=== PATIENT | female | born 1950 | race Caucasian/White ===

== ENCOUNTER 2021-04-26 00:48 | Inpatient (IN) ==
[2021-04-27] MEDS ORDERED: Naloxone 0.4 MG/ML INJ IVP PRN (01:39)
[2021-04-27] MEDS ORDERED: Ondansetron 4 MG/2 ML VIAL IVP PRN (01:39)
[2021-04-27] MEDS ORDERED: Ipratropium 1 PUFF INHALER IH PRN (01:47)
[2021-04-27] MEDS ORDERED: D5% in Water 1,000 ML IVC PRN (01:57)
[2021-04-27] MEDS ORDERED: *HR* Dextrose 50 % in Water (Vial) 50 ML VIAL IVP PRN (01:57)
[2021-04-27] MEDS ORDERED: Dextrose Gel 15 GM/37.5 ML TUBE PO PRN ×2 (01:57)
[2021-04-27 02:49] LABS: Hemoglobin 11.4 g/dL (11.5-15.4)
[2021-04-27 02:51] LABS: Hematocrit 40.5 % (35.3-44.9); Immature Platelets 6.1 % (1.1-6.1); Mean Corpuscular HGB Conc 28.1 g/dL (31.6-35.5); Mean Corpuscular Hemoglobin 20.4 pg (28.0-33.3); Mean Corpuscular Volume 72.3 fL (83.0-100.0); Mean Platelet Volume 9.9 fL (9.4-12.4); Platelet Count 357 K/mcL (140-400); White Blood Count 8.9 K/mcL (4.3-11.1)
[2021-04-27 03:14] LABS: BUN/Creatinine Ratio 26 (6-26); Blood Urea Nitrogen 17 mg/dL (8-23); C-Reactive Protein 99 mg/L (Less than 10); Calcium 8.4 mg/dL (8.6-10.3); Carbon Dioxide 21 mEq/L (23-29); Chloride 100 mEq/L (98-107); Glucose 293 mg/dL (70-105); Lactate Dehydrogenase 343 Units/L (140-271); Osmolality,Calculated 292 (280-300); Potassium 4.1 mEq/L (3.5-5.1); Sodium 135 mEq/L (136-145); eGFR For African Americans > 60 (> 60); eGFR For Non-African Americans > 60 (> 60)
[2021-04-27 03:28] LABS: Ferritin 102 ng/mL (10-120)
[2021-04-27] MEDS ORDERED: *HR* Enoxaparin 40 MG/0.4 ML SYRINGE SQ SCH (06:00)
[2021-04-27] MEDS: Insulin LISPRO 300 UNITS/3 ML VIAL SUBQ SCH ×3 (06:40→21:49)
[2021-04-27] MEDS ORDERED: Chloraseptic Spray 177 ML BOTTLE MM PRN (07:42)
[2021-04-27] MEDS: Ipratropium 1 PUFF INHALER IH SCH ×5 (08:30→23:19)
[2021-04-27 08:54] LABS: ABG Base Excess -1 mEq/L (-2 to 3); ABG HCO3 23 mEq/L (21-27); ABG Oxygen Saturation 88 % (95-98); ABG PCO2 36 mmHg (35-45); ABG PH 7.42 pH Units (7.32-7.45); ABG PO2 54 mmHg (85-104); ABG TCO2 24 mEq/L (20-26); Blood Gas Modality CPAP/PS; Blood Gas Pressure Support 12 cm H2O
[2021-04-27] MEDS: Cholecalciferol (D-3) 1,000 UNIT (25MCG) TABLET PO SCH (08:57)
[2021-04-27] MEDS: Chlorhexidine Rinse 15 ML MOUTHWASH MM SCH ×2 (08:57→21:48)
[2021-04-27] MEDS ORDERED: Dexamethasone Sodium Phos/PF 10 MG/ML VIAL IVP SCH (09:00)
[2021-04-27 09:23] LABS: INR 1.1; Prothrombin Time 12.8 Seconds (9.4-12.1)
[2021-04-27] MEDS: Furosemide 20 MG/2 ML VIAL IVP SCH (09:25)
[2021-04-27 09:27] LABS: Albumin 3.6 g/dL (3.5-5.7); Albumin/Globulin Ratio 1.1 (1.1-2.2); Bilirubin,Indirect 0.3 mg/dL (0.0-1.0); Bilirubin,Total 0.3 mg/dL (0.3-1.0); Globulin 3.2 g/dL (2.4-3.5); Magnesium 2.2 mg/dL (1.6-2.6); Phosphorous 3.8 mg/dL (2.7-4.5); Total Protein 6.8 g/dL (6.4-8.9)
[2021-04-27] MEDS: Artificial Tears SOLN 15 ML BOTTLE BOTH EYES SCH ×2 (09:44→21:48)
[2021-04-27] MEDS: Pantoprazole 40 MG VIAL IVP SCH (13:49)
[2021-04-27] MEDS ORDERED: TOCILIZUMAB 648 MG in 0.9 % Sodium Chloride 96.4 ML IVPB ONE (17:30)
[2021-04-27] MEDS ORDERED: *HR* Heparin 5,000 UNIT/ML VIAL IVP ONE (17:36)
[2021-04-27] MEDS ORDERED: *HR* Heparin 5,000 UNIT/ML VIAL IVP PRN ×2 (17:36)
[2021-04-27 19:16] LABS: Heparin anti-factor XA UFH 0.17 IU/mL (0.30-0.70); INR 1.1; Prothrombin Time 12.4 Seconds (9.4-12.1)
[2021-04-27] MEDS: Heparin 25,000UNIT/250ML 1/2NS 25,000 UNIT/250 ML IV.SOLN IVC SCH (19:55)
[2021-04-27] MEDS: Insulin DETEMIR 100 UNIT/ML X5UNITS SUBQ SCH (21:48)
[2021-04-28 02:44] LABS: Basophils % 0.1 %; Red Blood Count 5.46 M/mcL (3.82-4.97); Red Cell Distribution Width 29.7 % (11.5-14.5)
[2021-04-28 02:46] LABS: Hematocrit 39.1 % (35.3-44.9); Hemoglobin 11.2 g/dL (11.5-15.4); Immature Granulocytes % 0.7 % (0-4); Immature Platelets 6.6 % (1.1-6.1); Lymphocytes # 0.8 K/mcL (0.6-4.6); Mean Corpuscular HGB Conc 28.6 g/dL (31.6-35.5); Mean Corpuscular Hemoglobin 20.5 pg (28.0-33.3); Mean Corpuscular Volume 71.6 fL (83.0-100.0); Mean Platelet Volume 9.5 fL (9.4-12.4); Monocytes # 0.9 K/mcL (0.0-1.3); Monocytes % 11.9 %; Platelet Count 350 K/mcL (140-400); Segmented Neutrophils % 76.3 %; White Blood Count 7.4 K/mcL (4.3-11.1)
[2021-04-28 02:51] LABS: Neutrophils # 5.7 K/mcL (1.6-8.9)
[2021-04-28 02:57] LABS: Heparin anti-factor XA UFH 0.62 IU/mL (0.30-0.70)
[2021-04-28] MEDS: Ipratropium 1 PUFF INHALER IH SCH ×5 (03:02→19:31)
[2021-04-28 03:27] LABS: Alanine Aminotransferase 8 Units/L (7-52); Albumin 3.3 g/dL (3.5-5.7); Albumin/Globulin Ratio 1.1 (1.1-2.2); Alkaline Phosphatase 60 Units/L (34-104); Aspartate Amino Transferase 10 Units/L (13-39); BUN/Creatinine Ratio 45 (6-26); Bilirubin,Total 0.3 mg/dL (0.3-1.0); Blood Urea Nitrogen 25 mg/dL (8-23); C-Reactive Protein 53 mg/L (Less than 10); Calcium 8.9 mg/dL (8.6-10.3); Carbon Dioxide 26 mEq/L (23-29); Chloride 101 mEq/L (98-107); Ferritin 100 ng/mL (10-120); Globulin 3.1 g/dL (2.4-3.5); Glucose 234 mg/dL (70-105); Iron < 10 mcg/dL (50-170); Lactate Dehydrogenase 312 Units/L (140-271); Magnesium 2.4 mg/dL (1.6-2.6); Osmolality,Calculated 298 (280-300); Phosphorous 3.1 mg/dL (2.7-4.5); Potassium 3.8 mEq/L (3.5-5.1); Sodium 138 mEq/L (136-145); Total Protein 6.4 g/dL (6.4-8.9); Transferrin 235 mg/dL (203-362); eGFR For African Americans > 60 (> 60); eGFR For Non-African Americans > 60 (> 60)
[2021-04-28 04:13] LABS: Anisocytosis 2+ (Not Present)
[2021-04-28 04:14] LABS: Hypochromasia Present (Not Present); Microcytosis Present (Not Present); Platelet Estimate Normal (Normal)
[2021-04-28 06:43] LABS: Folate 16.8 ng/mL (3.0-16.0)
[2021-04-28] MEDS: Insulin LISPRO 300 UNITS/3 ML VIAL SUBQ SCH ×4 (07:29→17:09)
[2021-04-28] MEDS ORDERED: Iron Sucrose Complex 400 MG in 0.9 % Sodium Chloride 250 ML IVPB ONE (07:31)
[2021-04-28] MEDS: Multivit/Ca/Min/Fe/FA 1 TAB TABLET PO SCH (09:53)
[2021-04-28] MEDS: amLODIPine 5 MG TABLET PO SCH (09:53)
[2021-04-28] MEDS: Cholecalciferol (D-3) 1,000 UNIT (25MCG) TABLET PO SCH (09:53)
[2021-04-28] MEDS: Furosemide 20 MG/2 ML VIAL IVP SCH (09:54)
[2021-04-28] MEDS: Pantoprazole 40 MG VIAL IVP SCH (09:54)
[2021-04-28] MEDS: Chlorhexidine Rinse 15 ML MOUTHWASH MM SCH ×2 (09:55→19:31)
[2021-04-28] MEDS: Artificial Tears SOLN 15 ML BOTTLE BOTH EYES SCH ×3 (09:56→19:31)
[2021-04-28] MEDS: Insulin DETEMIR 100 UNIT/ML X5UNITS SUBQ SCH (19:30)
[2021-04-28] MEDS: Heparin 25,000UNIT/250ML 1/2NS 25,000 UNIT/250 ML IV.SOLN IVC SCH (23:36)
[2021-04-29] MEDS: Ipratropium 1 PUFF INHALER IH SCH ×7 (00:05→23:27)
[2021-04-29 01:59] LABS: Prothrombin Time 12.1 Seconds (9.4-12.1)
[2021-04-29 02:06] LABS: Alanine Aminotransferase 7 Units/L (7-52); Albumin 3.2 g/dL (3.5-5.7); Alkaline Phosphatase 58 Units/L (34-104); Aspartate Amino Transferase 12 Units/L (13-39); BUN/Creatinine Ratio 50 (6-26); Bilirubin,Total 0.3 mg/dL (0.3-1.0); Blood Urea Nitrogen 29 mg/dL (8-23); C-Reactive Protein 27 mg/L (Less than 10); Calcium 8.6 mg/dL (8.6-10.3); Carbon Dioxide 22 mEq/L (23-29); Chloride 97 mEq/L (98-107); Globulin 3.3 g/dL (2.4-3.5); Glucose 288 mg/dL (70-105); Lactate Dehydrogenase 274 Units/L (140-271); Magnesium 2.3 mg/dL (1.6-2.6); Osmolality,Calculated 294 (280-300); Phosphorous 2.9 mg/dL (2.7-4.5); Potassium 3.5 mEq/L (3.5-5.1); Sodium 134 mEq/L (136-145); Total Protein 6.5 g/dL (6.4-8.9); eGFR For African Americans > 60 (> 60); eGFR For Non-African Americans > 60 (> 60)
[2021-04-29 02:08] LABS: Basophils % 0.1 %; Hemoglobin 11.3 g/dL (11.5-15.4); Immature Granulocytes % 0.7 % (0-4); Immature Platelets 5.8 % (1.1-6.1); Lymphocytes # 0.7 K/mcL (0.6-4.6); Lymphocytes % 6.7 %; Mean Corpuscular Hemoglobin 21.2 pg (28.0-33.3); Mean Corpuscular Volume 73.3 fL (83.0-100.0); Monocytes % 8.8 %; Neutrophils # 9.1 K/mcL (1.6-8.9); Nucleated Red Blood Cells 0.2 /100 WBC (0); Platelet Count 349 K/mcL (140-400); Red Blood Count 5.32 M/mcL (3.82-4.97); Red Cell Distribution Width 29.7 % (11.5-14.5); Segmented Neutrophils % 83.7 %; White Blood Count 10.9 K/mcL (4.3-11.1)
[2021-04-29 02:14] LABS: Anisocytosis 2+ (Not Present); Hypochromasia Present (Not Present); Microcytosis Present (Not Present); Platelet Estimate Normal (Normal)
[2021-04-29 02:19] LABS: Estimated Average Glucose 154 mg/dl
[2021-04-29 02:20] LABS: Ferritin 165 ng/mL (10-120)
[2021-04-29] MEDS: Insulin LISPRO 300 UNITS/3 ML VIAL SUBQ SCH ×5 (03:02→20:39)
[2021-04-29] MEDS: Furosemide 20 MG/2 ML VIAL IVP SCH (09:00)
[2021-04-29] MEDS: Pantoprazole 40 MG VIAL IVP SCH (09:00)
[2021-04-29] MEDS: Cholecalciferol (D-3) 1,000 UNIT (25MCG) TABLET PO SCH (09:02)
[2021-04-29] MEDS: amLODIPine 5 MG TABLET PO SCH (09:02)
[2021-04-29] MEDS: Artificial Tears SOLN 15 ML BOTTLE BOTH EYES SCH ×2 (09:02→20:38)
[2021-04-29] MEDS: Multivit/Ca/Min/Fe/FA 1 TAB TABLET PO SCH (09:02)
[2021-04-29] MEDS: Chlorhexidine Rinse 15 ML MOUTHWASH MM SCH ×2 (09:02→20:37)
[2021-04-29] MEDS: Saliva Stimulant 44.3ml BOTTLE PO PRN ×2 (13:25→18:46)
[2021-04-29] MEDS: Saline Nasal Spray 44 ML BOTTLE NS PRN ×3 (13:25→20:38)
[2021-04-29] MEDS ORDERED: Insulin Human Regular 10 UNIT in 0.9 % Sodium Chloride 10 ML IV ONE (17:31)
[2021-04-29] MEDS: Insulin DETEMIR 100 UNIT/ML X5UNITS SUBQ SCH (20:37)
[2021-04-30 02:21] LABS: Basophils % 0.1 %; Hematocrit 40.7 % (35.3-44.9); Hemoglobin 11.6 g/dL (11.5-15.4); Immature Granulocytes % 0.9 % (0-4); Immature Platelets 10.1 % (1.1-6.1); Lymphocytes % 9.4 %; Mean Corpuscular HGB Conc 28.5 g/dL (31.6-35.5); Mean Corpuscular Hemoglobin 21.4 pg (28.0-33.3); Monocytes % 9.9 %; Neutrophils # 8.4 K/mcL (1.6-8.9); Platelet Count 319 K/mcL (140-400); Red Blood Count 5.43 M/mcL (3.82-4.97); Red Cell Distribution Width 30.1 % (11.5-14.5); Segmented Neutrophils % 79.7 %; White Blood Count 10.5 K/mcL (4.3-11.1)
[2021-04-30 02:26] LABS: Prothrombin Time 11.1 Seconds (9.4-12.1)
[2021-04-30 03:24] LABS: C-Reactive Protein 12 mg/L (Less than 10)
[2021-04-30 03:25] LABS: Alanine Aminotransferase 10 Units/L (7-52); Albumin 3.1 g/dL (3.5-5.7); Albumin/Globulin Ratio 1.1 (1.1-2.2); Alkaline Phosphatase 54 Units/L (34-104); Aspartate Amino Transferase 17 Units/L (13-39); BUN/Creatinine Ratio 39 (6-26); Bilirubin,Total 0.3 mg/dL (0.3-1.0); Blood Urea Nitrogen 24 mg/dL (8-23); Calcium 8.6 mg/dL (8.6-10.3); Carbon Dioxide 20 mEq/L (23-29); Chloride 100 mEq/L (98-107); Ferritin 227 ng/mL (10-120); Globulin 2.8 g/dL (2.4-3.5); Glucose 205 mg/dL (70-105); Lactate Dehydrogenase 322 Units/L (140-271); Magnesium 2.3 mg/dL (1.6-2.6); Osmolality,Calculated 288 (280-300); Phosphorous 2.4 mg/dL (2.7-4.5); Potassium 3.5 mEq/L (3.5-5.1); Sodium 134 mEq/L (136-145); Total Protein 5.9 g/dL (6.4-8.9); eGFR For African Americans > 60 (> 60); eGFR For Non-African Americans > 60 (> 60)
[2021-04-30 04:00] LABS: Anisocytosis 3+ (Not Present); Large Platelets Present (Not Present); Platelet Estimate Normal (Normal)
[2021-04-30 04:01] LABS: Hypochromasia Present (Not Present)
[2021-04-30] MEDS: Ipratropium 1 PUFF INHALER IH SCH ×6 (04:07→23:32)
[2021-04-30] MEDS: Cholecalciferol (D-3) 1,000 UNIT (25MCG) TABLET PO SCH (08:00)
[2021-04-30] MEDS: amLODIPine 5 MG TABLET PO SCH (08:00)
[2021-04-30] MEDS: Furosemide 20 MG/2 ML VIAL IVP SCH (08:00)
[2021-04-30] MEDS: Multivit/Ca/Min/Fe/FA 1 TAB TABLET PO SCH (08:00)
[2021-04-30] MEDS: Pantoprazole 40 MG VIAL IVP SCH (08:02)
[2021-04-30] MEDS: Chlorhexidine Rinse 15 ML MOUTHWASH MM SCH ×2 (08:06→20:50)
[2021-04-30] MEDS: Insulin DETEMIR 100 UNIT/ML X5UNITS SUBQ SCH ×2 (08:08→20:50)
[2021-04-30] MEDS: Insulin LISPRO 300 UNITS/3 ML VIAL SUBQ SCH ×5 (08:24→20:57)
[2021-04-30] MEDS: Heparin 25,000UNIT/250ML 1/2NS 25,000 UNIT/250 ML IV.SOLN IVC SCH ×2 (08:34→20:51)
[2021-04-30] MEDS: Artificial Tears SOLN 15 ML BOTTLE BOTH EYES SCH ×2 (11:32→20:59)
[2021-04-30 22:37] LABS: Hepatitis B Surface Antigen Nonreactive (Nonreactive)
[2021-04-30 23:07] LABS: Hepatitis A Antibody IgM Nonreactive (Nonreactive)
[2021-05-01] MEDS: Ipratropium 1 PUFF INHALER IH SCH ×5 (03:39→21:54)
[2021-05-01 07:44] LABS: Basophils % 0.1 %
[2021-05-01 07:46] LABS: Eosinophils # 0.1 K/mcL (0.0-0.6); Eosinophils % 0.5 %; Hemoglobin 11.2 g/dL (11.5-15.4); Immature Granulocytes % 1.7 % (0-4); Immature Platelets 8.5 % (1.1-6.1); Lymphocytes # 1.3 K/mcL (0.6-4.6); Lymphocytes % 13.5 %; Mean Corpuscular HGB Conc 28.7 g/dL (31.6-35.5); Mean Corpuscular Hemoglobin 20.6 pg (28.0-33.3); Mean Corpuscular Volume 71.6 fL (83.0-100.0); Monocytes # 0.5 K/mcL (0.0-1.3); Monocytes % 5.8 %; Neutrophils # 7.3 K/mcL (1.6-8.9); Nucleated Red Blood Cells 0.2 /100 WBC (0); Platelet Count 379 K/mcL (140-400); Red Blood Count 5.45 M/mcL (3.82-4.97); Red Cell Distribution Width 29.5 % (11.5-14.5); Segmented Neutrophils % 78.4 %; White Blood Count 9.3 K/mcL (4.3-11.1)
[2021-05-01] MEDS: Chlorhexidine Rinse 15 ML MOUTHWASH MM SCH ×2 (07:49→21:20)
[2021-05-01] MEDS: Cholecalciferol (D-3) 1,000 UNIT (25MCG) TABLET PO SCH (07:49)
[2021-05-01] MEDS: Multivit/Ca/Min/Fe/FA 1 TAB TABLET PO SCH (07:49)
[2021-05-01] MEDS: Furosemide 20 MG/2 ML VIAL IVP SCH (07:50)
[2021-05-01] MEDS: amLODIPine 5 MG TABLET PO SCH (07:50)
[2021-05-01] MEDS: Pantoprazole 40 MG VIAL IVP SCH (07:50)
[2021-05-01] MEDS: Insulin DETEMIR 100 UNIT/ML X5UNITS SUBQ SCH ×2 (07:51→21:21)
[2021-05-01] MEDS: Artificial Tears SOLN 15 ML BOTTLE BOTH EYES SCH ×2 (07:52→21:20)
[2021-05-01] MEDS: Insulin LISPRO 300 UNITS/3 ML VIAL SUBQ SCH ×6 (07:52→16:49)
[2021-05-01] MEDS: Loratadine 10 MG TABLET PO SCH (07:57)
[2021-05-01 08:17] LABS: Alanine Aminotransferase 13 Units/L (7-52); Albumin 3.3 g/dL (3.5-5.7); Albumin/Globulin Ratio 1.3 (1.1-2.2); Alkaline Phosphatase 53 Units/L (34-104); Aspartate Amino Transferase 19 Units/L (13-39); BUN/Creatinine Ratio 30 (6-26); Bilirubin,Total 0.3 mg/dL (0.3-1.0); Blood Urea Nitrogen 21 mg/dL (8-23); Calcium 8.9 mg/dL (8.6-10.3); Carbon Dioxide 28 mEq/L (23-29); Chloride 99 mEq/L (98-107); Ferritin 257 ng/mL (10-120); Globulin 2.5 g/dL (2.4-3.5); Glucose 107 mg/dL (70-105); Lactate Dehydrogenase 274 Units/L (140-271); Magnesium 2.2 mg/dL (1.6-2.6); Osmolality,Calculated 289 (280-300); Phosphorous 2.8 mg/dL (2.7-4.5); Potassium 3.6 mEq/L (3.5-5.1); Sodium 138 mEq/L (136-145); Total Protein 5.8 g/dL (6.4-8.9); eGFR For African Americans > 60 (> 60); eGFR For Non-African Americans > 60 (> 60)
[2021-05-01 09:16] LABS: Anisocytosis 3+ (Not Present); Hypochromasia Present (Not Present); Platelet Estimate Normal (Normal)
[2021-05-01 09:17] LABS: Large Platelets Present (Not Present); Microcytosis Present (Not Present)
[2021-05-01 10:34] LABS: C-Reactive Protein < 5 mg/L (Less than 10)
[2021-05-02] MEDS: Ipratropium 1 PUFF INHALER IH SCH ×4 (03:59→22:27)
[2021-05-02 05:32] LABS: Basophils % 0.1 %; Eosinophils # 0.1 K/mcL (0.0-0.6); Eosinophils % 0.7 %; Hematocrit 38.1 % (35.3-44.9); Hemoglobin 11.2 g/dL (11.5-15.4); Immature Granulocytes % 2.4 % (0-4); Immature Platelets 8.9 % (1.1-6.1); Lymphocytes # 1.1 K/mcL (0.6-4.6); Mean Corpuscular HGB Conc 29.4 g/dL (31.6-35.5); Mean Corpuscular Hemoglobin 21.1 pg (28.0-33.3); Mean Corpuscular Volume 71.8 fL (83.0-100.0); Monocytes # 0.6 K/mcL (0.0-1.3); Monocytes % 5.4 %; Platelet Count 345 K/mcL (140-400); Red Blood Count 5.31 M/mcL (3.82-4.97); Red Cell Distribution Width 29.5 % (11.5-14.5); Segmented Neutrophils % 81.4 %; White Blood Count 10.9 K/mcL (4.3-11.1)
[2021-05-02 05:57] LABS: Alanine Aminotransferase 20 Units/L (7-52); Albumin 3.2 g/dL (3.5-5.7); Albumin/Globulin Ratio 1.2 (1.1-2.2); Alkaline Phosphatase 54 Units/L (34-104); Aspartate Amino Transferase 22 Units/L (13-39); BUN/Creatinine Ratio 38 (6-26); Bilirubin,Total 0.3 mg/dL (0.3-1.0); Blood Urea Nitrogen 22 mg/dL (8-23); C-Reactive Protein < 5 mg/L (Less than 10); Calcium 8.7 mg/dL (8.6-10.3); Carbon Dioxide 26 mEq/L (23-29); Chloride 99 mEq/L (98-107); Globulin 2.7 g/dL (2.4-3.5); Glucose 162 mg/dL (70-105); Lactate Dehydrogenase 247 Units/L (140-271); Magnesium 2.2 mg/dL (1.6-2.6); Osmolality,Calculated 289 (280-300); Phosphorous 2.7 mg/dL (2.7-4.5); Potassium 3.7 mEq/L (3.5-5.1); Sodium 136 mEq/L (136-145); Total Protein 5.9 g/dL (6.4-8.9); eGFR For African Americans > 60 (> 60); eGFR For Non-African Americans > 60 (> 60)
[2021-05-02 05:58] LABS: Neutrophils # 8.9 K/mcL (1.6-8.9)
[2021-05-02 06:08] LABS: Ferritin 200 ng/mL (10-120)
[2021-05-02 06:10] LABS: Anisocytosis 3+ (Not Present); Microcytosis Present (Not Present)
[2021-05-02 06:11] LABS: Platelet Estimate Normal (Normal); Poikilocytosis 1+ (Not Present)
[2021-05-02] MEDS: Artificial Tears SOLN 15 ML BOTTLE BOTH EYES SCH ×2 (07:35→20:01)
[2021-05-02] MEDS: Cholecalciferol (D-3) 1,000 UNIT (25MCG) TABLET PO SCH (07:44)
[2021-05-02] MEDS: amLODIPine 5 MG TABLET PO SCH (07:44)
[2021-05-02] MEDS: Loratadine 10 MG TABLET PO SCH (07:44)
[2021-05-02] MEDS: Multivit/Ca/Min/Fe/FA 1 TAB TABLET PO SCH (07:44)
[2021-05-02] MEDS: Chlorhexidine Rinse 15 ML MOUTHWASH MM SCH ×2 (07:44→20:01)
[2021-05-02] MEDS: Insulin DETEMIR 100 UNIT/ML X5UNITS SUBQ SCH ×2 (07:45→20:02)
[2021-05-02] MEDS: Pantoprazole 40 MG VIAL IVP SCH (07:45)
[2021-05-02] MEDS: Furosemide 20 MG/2 ML VIAL IVP SCH (07:45)
[2021-05-02] MEDS: Dexamethasone Sodium Phos/PF 10 MG/ML VIAL IVP SCH (07:46)
[2021-05-02] MEDS: Insulin LISPRO 300 UNITS/3 ML VIAL SUBQ SCH ×3 (11:45→16:33)
[2021-05-02] MEDS: Heparin 25,000UNIT/250ML 1/2NS 25,000 UNIT/250 ML IV.SOLN IVC SCH (13:20)
[2021-05-02] MEDS ORDERED: Insulin DETEMIR 100 UNIT/ML X5UNITS SUBQ ONE (17:21)
[2021-05-02] MEDS ORDERED: Insulin LISPRO 300 UNITS/3 ML VIAL SUBQ ONE (17:21)
[2021-05-02 23:47] LABS: Hepatitis B Core IgM Nonreactive (Nonreactive)
[2021-05-02 23:50] LABS: Hepatitis C Virus Antibody Nonreactive (Nonreactive)
[2021-05-02 23:53] LABS: HIV-1&2 Antibody & p24 Ag Nonreactive (Nonreactive)
[2021-05-03] MEDS: Acetaminophen 325 MG TABLET PO PRN (03:32)
[2021-05-03] MEDS: Ipratropium 1 PUFF INHALER IH SCH ×4 (03:45→20:29)
[2021-05-03 05:05] LABS: Hemoglobin 11.1 g/dL (11.5-15.4); Mean Corpuscular HGB Conc 29.2 g/dL (31.6-35.5); Mean Corpuscular Hemoglobin 21.1 pg (28.0-33.3); Mean Corpuscular Volume 72.1 fL (83.0-100.0); Platelet Count 345 K/mcL (140-400); Red Blood Count 5.27 M/mcL (3.82-4.97); Red Cell Distribution Width 29.9 % (11.5-14.5); White Blood Count 9.8 K/mcL (4.3-11.1)
[2021-05-03 05:06] LABS: Basophils % 0.2 %; Eosinophils # 0.2 K/mcL (0.0-0.6); Eosinophils % 2.1 %; Immature Granulocytes % 1.5 % (0-4); Immature Platelets 10.4 % (1.1-6.1); Lymphocytes # 1.2 K/mcL (0.6-4.6); Lymphocytes % 12.1 %; Monocytes # 0.4 K/mcL (0.0-1.3); Monocytes % 4.5 %; Neutrophils # 7.8 K/mcL (1.6-8.9); Segmented Neutrophils % 79.6 %
[2021-05-03 05:25] LABS: Alanine Aminotransferase 22 Units/L (7-52); Albumin 3.2 g/dL (3.5-5.7); Albumin/Globulin Ratio 1.3 (1.1-2.2); Alkaline Phosphatase 53 Units/L (34-104); Aspartate Amino Transferase 20 Units/L (13-39); BUN/Creatinine Ratio 36 (6-26); Bilirubin,Total 0.3 mg/dL (0.3-1.0); Blood Urea Nitrogen 24 mg/dL (8-23); C-Reactive Protein < 5 mg/L (Less than 10); Calcium 8.8 mg/dL (8.6-10.3); Carbon Dioxide 28 mEq/L (23-29); Chloride 100 mEq/L (98-107); Globulin 2.5 g/dL (2.4-3.5); Glucose 88 mg/dL (70-105); Lactate Dehydrogenase 242 Units/L (140-271); Osmolality,Calculated 287 (280-300); Phosphorous 2.9 mg/dL (2.7-4.5); Sodium 137 mEq/L (136-145); Total Protein 5.7 g/dL (6.4-8.9); eGFR For African Americans > 60 (> 60); eGFR For Non-African Americans > 60 (> 60)
[2021-05-03 05:35] LABS: Anisocytosis 1+ (Not Present); Hypochromasia Present (Not Present)
[2021-05-03 05:36] LABS: Microcytosis Present (Not Present); Platelet Estimate Normal (Normal)
[2021-05-03 05:40] LABS: Ferritin 165 ng/mL (10-120)
[2021-05-03] MEDS: Heparin 25,000UNIT/250ML 1/2NS 25,000 UNIT/250 ML IV.SOLN IVC SCH (07:27)
[2021-05-03] MEDS ORDERED: Furosemide 40 MG/4 ML VIAL IVP ONE (07:40)
[2021-05-03] MEDS: Insulin LISPRO 300 UNITS/3 ML VIAL SUBQ SCH ×3 (07:56→17:10)
[2021-05-03] MEDS: amLODIPine 5 MG TABLET PO SCH (08:11)
[2021-05-03] MEDS: Multivit/Ca/Min/Fe/FA 1 TAB TABLET PO SCH (08:11)
[2021-05-03] MEDS: Loratadine 10 MG TABLET PO SCH (08:11)
[2021-05-03] MEDS: Pantoprazole 40 MG VIAL IVP SCH (08:12)
[2021-05-03] MEDS: Dexamethasone Sodium Phos/PF 10 MG/ML VIAL IVP SCH (08:16)
[2021-05-03] MEDS: Cholecalciferol (D-3) 1,000 UNIT (25MCG) TABLET PO SCH (08:17)
[2021-05-03] MEDS: Chlorhexidine Rinse 15 ML MOUTHWASH MM SCH ×2 (08:17→20:18)
[2021-05-03] MEDS: Artificial Tears SOLN 15 ML BOTTLE BOTH EYES SCH ×2 (08:18→20:18)
[2021-05-03] MEDS: Insulin DETEMIR 100 UNIT/ML X5UNITS SUBQ SCH ×2 (09:30→20:17)
[2021-05-04 02:50] LABS: Basophils % 0.1 %
[2021-05-04 02:52] LABS: Eosinophils # 0.2 K/mcL (0.0-0.6); Eosinophils % 1.4 %; Hematocrit 43.7 % (35.3-44.9); Hemoglobin 12.5 g/dL (11.5-15.4); Immature Granulocytes % 0.9 % (0-4); Immature Platelets 16.6 % (1.1-6.1); Mean Corpuscular HGB Conc 28.6 g/dL (31.6-35.5); Mean Corpuscular Volume 73.3 fL (83.0-100.0); Monocytes # 0.5 K/mcL (0.0-1.3); Monocytes % 4.4 %; Neutrophils # 8.7 K/mcL (1.6-8.9); Platelet Count 285 K/mcL (140-400); Red Blood Count 5.96 M/mcL (3.82-4.97); Red Cell Distribution Width 30.3 % (11.5-14.5); Segmented Neutrophils % 83.2 %; White Blood Count 10.4 K/mcL (4.3-11.1)
[2021-05-04 03:03] LABS: BUN/Creatinine Ratio 47 (6-26); Blood Urea Nitrogen 25 mg/dL (8-23); Calcium 9.1 mg/dL (8.6-10.3); Carbon Dioxide 27 mEq/L (23-29); Chloride 102 mEq/L (98-107); Glucose 75 mg/dL (70-105); Magnesium 2.2 mg/dL (1.6-2.6); Osmolality,Calculated 289 (280-300); Potassium 3.9 mEq/L (3.5-5.1); Sodium 138 mEq/L (136-145); eGFR For African Americans > 60 (> 60); eGFR For Non-African Americans > 60 (> 60)
[2021-05-04 03:20] LABS: Anisocytosis 2+ (Not Present); Large Platelets Present (Not Present); Microcytosis Present (Not Present); Platelet Estimate Normal (Normal)
[2021-05-04 03:21] LABS: Poikilocytosis 1+ (Not Present); Target Cells 1+ (Not Present)
[2021-05-04] MEDS: Heparin 25,000UNIT/250ML 1/2NS 25,000 UNIT/250 ML IV.SOLN IVC SCH (03:59)
[2021-05-04] MEDS: Ipratropium 1 PUFF INHALER IH SCH ×4 (04:07→20:57)
[2021-05-04] MEDS: Insulin LISPRO 300 UNITS/3 ML VIAL SUBQ SCH ×3 (08:26→16:51)
[2021-05-04] MEDS: Multivit/Ca/Min/Fe/FA 1 TAB TABLET PO SCH (08:27)
[2021-05-04] MEDS: Cholecalciferol (D-3) 1,000 UNIT (25MCG) TABLET PO SCH (08:27)
[2021-05-04] MEDS: Dexamethasone Sodium Phos/PF 10 MG/ML VIAL IVP SCH (08:28)
[2021-05-04] MEDS: Pantoprazole 40 MG VIAL IVP SCH (08:28)
[2021-05-04] MEDS: Loratadine 10 MG TABLET PO SCH (08:28)
[2021-05-04] MEDS: Insulin DETEMIR 100 UNIT/ML X5UNITS SUBQ SCH ×2 (08:29→21:04)
[2021-05-04] MEDS: Chlorhexidine Rinse 15 ML MOUTHWASH MM SCH ×2 (08:47→21:05)
[2021-05-04] MEDS: Artificial Tears SOLN 15 ML BOTTLE BOTH EYES SCH ×2 (08:52→21:05)
[2021-05-04] MEDS: amLODIPine 5 MG TABLET PO SCH (08:52)
[2021-05-05] MEDS: Ipratropium 1 PUFF INHALER IH SCH ×4 (03:48→22:55)
[2021-05-05 05:07] LABS: Mean Corpuscular Volume 73.1 fL (83.0-100.0)
[2021-05-05 05:09] LABS: Basophils % 0.2 %; Eosinophils # 0.2 K/mcL (0.0-0.6); Eosinophils % 2.3 %; Hemoglobin 11.5 g/dL (11.5-15.4); Immature Granulocytes % 0.5 % (0-4); Immature Platelets 13.4 % (1.1-6.1); Lymphocytes # 1.2 K/mcL (0.6-4.6); Lymphocytes % 12.1 %; Mean Corpuscular HGB Conc 28.8 g/dL (31.6-35.5); Monocytes % 6.7 %; Neutrophils # 7.5 K/mcL (1.6-8.9); Platelet Count 330 K/mcL (140-400); Red Blood Count 5.47 M/mcL (3.82-4.97); Red Cell Distribution Width 30.7 % (11.5-14.5); Segmented Neutrophils % 78.2 %; White Blood Count 9.6 K/mcL (4.3-11.1)
[2021-05-05 05:15] LABS: BUN/Creatinine Ratio 31 (6-26); Blood Urea Nitrogen 20 mg/dL (8-23); Calcium 9.1 mg/dL (8.6-10.3); Carbon Dioxide 28 mEq/L (23-29); Chloride 101 mEq/L (98-107); Glucose 93 mg/dL (70-105); Magnesium 2.2 mg/dL (1.6-2.6); Osmolality,Calculated 286 (280-300); Sodium 137 mEq/L (136-145); eGFR For African Americans > 60 (> 60); eGFR For Non-African Americans > 60 (> 60)
[2021-05-05 05:18] LABS: Monocytes # 0.6 K/mcL (0.0-1.3)
[2021-05-05 06:03] LABS: Anisocytosis 1+ (Not Present); Hypochromasia Present (Not Present); Platelet Estimate Normal (Normal); Poikilocytosis 1+ (Not Present)
[2021-05-05] MEDS: Insulin LISPRO 300 UNITS/3 ML VIAL SUBQ SCH ×3 (08:13→17:43)
[2021-05-05] MEDS: Dexamethasone Sodium Phos/PF 10 MG/ML VIAL IVP SCH (08:28)
[2021-05-05] MEDS: Cholecalciferol (D-3) 1,000 UNIT (25MCG) TABLET PO SCH (08:28)
[2021-05-05] MEDS: Loratadine 10 MG TABLET PO SCH (08:29)
[2021-05-05] MEDS: Multivit/Ca/Min/Fe/FA 1 TAB TABLET PO SCH (08:29)
[2021-05-05] MEDS: amLODIPine 5 MG TABLET PO SCH (08:29)
[2021-05-05] MEDS: Pantoprazole 40 MG VIAL IVP SCH (08:29)
[2021-05-05] MEDS: Chlorhexidine Rinse 15 ML MOUTHWASH MM SCH ×2 (08:34→22:04)
[2021-05-05] MEDS: Artificial Tears SOLN 15 ML BOTTLE BOTH EYES SCH ×2 (08:41→22:04)
[2021-05-05] MEDS: Insulin DETEMIR 100 UNIT/ML X5UNITS SUBQ SCH ×2 (08:50→22:10)
[2021-05-05] MEDS: Heparin 25,000UNIT/250ML 1/2NS 25,000 UNIT/250 ML IV.SOLN IVC SCH (17:24)
[2021-05-06] MEDS: Ipratropium 1 PUFF INHALER IH SCH ×4 (04:22→21:16)
[2021-05-06 05:01] LABS: Basophils % 0.2 %; Hemoglobin 11.6 g/dL (11.5-15.4); White Blood Count 11.3 K/mcL (4.3-11.1)
[2021-05-06 05:03] LABS: Eosinophils # 0.4 K/mcL (0.0-0.6); Eosinophils % 3.5 %; Hematocrit 39.4 % (35.3-44.9); Immature Granulocytes % 0.6 % (0-4); Immature Platelets 13.8 % (1.1-6.1); Lymphocytes # 1.2 K/mcL (0.6-4.6); Lymphocytes % 10.6 %; Mean Corpuscular HGB Conc 29.4 g/dL (31.6-35.5); Mean Corpuscular Hemoglobin 21.4 pg (28.0-33.3); Mean Corpuscular Volume 72.6 fL (83.0-100.0); Monocytes # 0.8 K/mcL (0.0-1.3); Monocytes % 6.7 %; Platelet Count 341 K/mcL (140-400); Red Blood Count 5.43 M/mcL (3.82-4.97); Segmented Neutrophils % 78.4 %
[2021-05-06 05:07] LABS: Neutrophils # 8.9 K/mcL (1.6-8.9)
[2021-05-06 05:19] LABS: BUN/Creatinine Ratio 28 (6-26); Blood Urea Nitrogen 15 mg/dL (8-23); Calcium 9.1 mg/dL (8.6-10.3); Carbon Dioxide 26 mEq/L (23-29); Chloride 102 mEq/L (98-107); Glucose 98 mg/dL (70-105); Magnesium 2.1 mg/dL (1.6-2.6); Osmolality,Calculated 281 (280-300); Potassium 4.4 mEq/L (3.5-5.1); Sodium 135 mEq/L (136-145); eGFR For African Americans > 60 (> 60); eGFR For Non-African Americans > 60 (> 60)
[2021-05-06 05:58] LABS: Hypochromasia Present (Not Present); Platelet Estimate Normal (Normal)
[2021-05-06 05:59] LABS: Microcytosis Present (Not Present)
[2021-05-06] MEDS: Insulin LISPRO 300 UNITS/3 ML VIAL SUBQ SCH ×3 (08:03→17:27)
[2021-05-06] MEDS: Multivit/Ca/Min/Fe/FA 1 TAB TABLET PO SCH ×2 (09:37→10:55)
[2021-05-06] MEDS: Cholecalciferol (D-3) 1,000 UNIT (25MCG) TABLET PO SCH ×2 (09:37→10:56)
[2021-05-06] MEDS: Pantoprazole 40 MG VIAL IVP SCH ×2 (09:38→10:55)
[2021-05-06] MEDS: Loratadine 10 MG TABLET PO SCH ×2 (09:38→10:54)
[2021-05-06] MEDS: amLODIPine 5 MG TABLET PO SCH ×2 (09:38→10:55)
[2021-05-06] MEDS: Chlorhexidine Rinse 15 ML MOUTHWASH MM SCH ×3 (09:38→22:13)
[2021-05-06] MEDS: Dexamethasone Sodium Phos/PF 10 MG/ML VIAL IVP SCH ×2 (09:39→10:55)
[2021-05-06] MEDS: Insulin DETEMIR 100 UNIT/ML X5UNITS SUBQ SCH ×3 (09:39→22:13)
[2021-05-06] MEDS: Artificial Tears SOLN 15 ML BOTTLE BOTH EYES SCH ×3 (09:41→22:14)
[2021-05-06] MEDS: Heparin 25,000UNIT/250ML 1/2NS 25,000 UNIT/250 ML IV.SOLN IVC SCH (17:25)
[2021-05-06] MEDS: Furosemide 40 MG/4 ML VIAL IVP SCH (17:27)
[2021-05-06] MEDS: *HR* Enoxaparin 80 MG/0.8 ML SYRINGE SQ SCH (17:28)
[2021-05-07] MEDS: Ipratropium 1 PUFF INHALER IH SCH ×4 (04:04→21:46)
[2021-05-07 06:24] LABS: Hemoglobin 12.2 g/dL (11.5-15.4); Mean Corpuscular Volume 73.8 fL (83.0-100.0)
[2021-05-07 06:27] LABS: Hematocrit 42.2 % (35.3-44.9); Immature Platelets 14.1 % (1.1-6.1); Mean Corpuscular HGB Conc 28.9 g/dL (31.6-35.5); Mean Corpuscular Hemoglobin 21.3 pg (28.0-33.3); Platelet Count 338 K/mcL (140-400); Red Blood Count 5.72 M/mcL (3.82-4.97); White Blood Count 11.5 K/mcL (4.3-11.1)
[2021-05-07 06:38] LABS: BUN/Creatinine Ratio 42 (6-26); Blood Urea Nitrogen 23 mg/dL (8-23); Calcium 9.3 mg/dL (8.6-10.3); Carbon Dioxide 26 mEq/L (23-29); Chloride 101 mEq/L (98-107); Glucose 93 mg/dL (70-105); Magnesium 2.2 mg/dL (1.6-2.6); Osmolality,Calculated 287 (280-300); Potassium 4.1 mEq/L (3.5-5.1); Sodium 137 mEq/L (136-145); eGFR For African Americans > 60 (> 60); eGFR For Non-African Americans > 60 (> 60)
[2021-05-07 08:18] LABS: Eosinophils # 0.1 K/mcL (0.0-0.6); Lymphocytes # 0.6 K/mcL (0.6-4.6); Monocytes # 0.6 K/mcL (0.0-1.3); Neutrophils # 9.9 K/mcL (1.6-8.9)
[2021-05-07 08:20] LABS: Anisocytosis 2+ (Not Present); Hypochromasia Present (Not Present); Microcytosis Present (Not Present); Platelet Estimate Normal (Normal); Target Cells 1+ (Not Present)
[2021-05-07] MEDS: Insulin LISPRO 300 UNITS/3 ML VIAL SUBQ SCH ×3 (09:02→16:24)
[2021-05-07] MEDS: Furosemide 40 MG/4 ML VIAL IVP SCH (10:51)
[2021-05-07] MEDS: Dexamethasone Sodium Phos/PF 10 MG/ML VIAL IVP SCH (10:51)
[2021-05-07] MEDS: Loratadine 10 MG TABLET PO SCH (10:51)
[2021-05-07] MEDS: amLODIPine 5 MG TABLET PO SCH (10:51)
[2021-05-07] MEDS: Pantoprazole 40 MG VIAL IVP SCH (10:51)
[2021-05-07] MEDS: Multivit/Ca/Min/Fe/FA 1 TAB TABLET PO SCH (10:51)
[2021-05-07] MEDS: Insulin DETEMIR 100 UNIT/ML X5UNITS SUBQ SCH ×2 (11:04→21:11)
[2021-05-07] MEDS: Artificial Tears SOLN 15 ML BOTTLE BOTH EYES SCH ×2 (11:06→21:12)
[2021-05-07] MEDS: Chlorhexidine Rinse 15 ML MOUTHWASH MM SCH ×2 (11:06→21:10)
[2021-05-07] MEDS: *HR* Enoxaparin 80 MG/0.8 ML SYRINGE SQ SCH ×2 (11:32→18:07)
[2021-05-07] MEDS: Cholecalciferol (D-3) 1,000 UNIT (25MCG) TABLET PO SCH (12:36)
[2021-05-07] MEDS: Acetaminophen 325 MG TABLET PO PRN (18:06)
[2021-05-08] MEDS: Ipratropium 1 PUFF INHALER IH SCH ×4 (04:12→21:11)
[2021-05-08] MEDS: *HR* Enoxaparin 80 MG/0.8 ML SYRINGE SQ SCH ×2 (05:10→17:25)
[2021-05-08] MEDS: Insulin LISPRO 300 UNITS/3 ML VIAL SUBQ SCH ×3 (07:28→16:55)
[2021-05-08 08:01] LABS: Hematocrit 42.5 % (35.3-44.9); Hemoglobin 12.2 g/dL (11.5-15.4); Immature Platelets 14.1 % (1.1-6.1); Mean Corpuscular HGB Conc 28.7 g/dL (31.6-35.5); Mean Corpuscular Hemoglobin 21.6 pg (28.0-33.3); Mean Corpuscular Volume 75.4 fL (83.0-100.0); Platelet Count 347 K/mcL (140-400); Red Blood Count 5.64 M/mcL (3.82-4.97); Red Cell Distribution Width 30.9 % (11.5-14.5); White Blood Count 10.5 K/mcL (4.3-11.1)
[2021-05-08] MEDS: Chlorhexidine Rinse 15 ML MOUTHWASH MM SCH ×2 (08:59→20:18)
[2021-05-08] MEDS: amLODIPine 5 MG TABLET PO SCH (08:59)
[2021-05-08] MEDS: Artificial Tears SOLN 15 ML BOTTLE BOTH EYES SCH ×2 (08:59→20:18)
[2021-05-08] MEDS: Multivit/Ca/Min/Fe/FA 1 TAB TABLET PO SCH (08:59)
[2021-05-08] MEDS: Cholecalciferol (D-3) 1,000 UNIT (25MCG) TABLET PO SCH (08:59)
[2021-05-08] MEDS: Insulin DETEMIR 100 UNIT/ML X5UNITS SUBQ SCH (09:00)
[2021-05-08] MEDS: Furosemide 40 MG/4 ML VIAL IVP SCH (09:00)
[2021-05-08] MEDS: Dexamethasone Sodium Phos/PF 10 MG/ML VIAL IVP SCH (09:00)
[2021-05-08] MEDS: Pantoprazole 40 MG VIAL IVP SCH (09:00)
[2021-05-08 10:47] LABS: BUN/Creatinine Ratio 43 (6-26); Blood Urea Nitrogen 27 mg/dL (8-23); Calcium 9.4 mg/dL (8.6-10.3); Carbon Dioxide 29 mEq/L (23-29); Chloride 99 mEq/L (98-107); Glucose 106 mg/dL (70-105); Magnesium 2.2 mg/dL (1.6-2.6); Osmolality,Calculated 290 (280-300); Potassium 4.1 mEq/L (3.5-5.1); Sodium 137 mEq/L (136-145); eGFR For African Americans > 60 (> 60); eGFR For Non-African Americans > 60 (> 60)
[2021-05-08] MEDS: Acetaminophen 325 MG TABLET PO PRN (11:39)
[2021-05-08 12:00] LABS: Anisocytosis 3+ (Not Present); Hypochromasia Present (Not Present); Lymphocytes # 1.9 K/mcL (0.6-4.6); Neutrophils # 8.6 K/mcL (1.6-8.9); Platelet Estimate Normal (Normal)
[2021-05-09] MEDS: Ipratropium 1 PUFF INHALER IH SCH ×4 (03:45→21:16)
[2021-05-09] MEDS: *HR* Enoxaparin 80 MG/0.8 ML SYRINGE SQ SCH ×2 (05:22→17:11)
[2021-05-09] MEDS: Chlorhexidine Rinse 15 ML MOUTHWASH MM SCH ×2 (08:34→20:52)
[2021-05-09] MEDS: Pantoprazole 40 MG VIAL IVP SCH (08:34)
[2021-05-09] MEDS: Furosemide 40 MG/4 ML VIAL IVP SCH (08:34)
[2021-05-09] MEDS: amLODIPine 5 MG TABLET PO SCH (08:35)
[2021-05-09] MEDS: Multivit/Ca/Min/Fe/FA 1 TAB TABLET PO SCH (08:35)
[2021-05-09] MEDS: Cholecalciferol (D-3) 1,000 UNIT (25MCG) TABLET PO SCH (08:35)
[2021-05-09] MEDS: Insulin DETEMIR 100 UNIT/ML X5UNITS SUBQ SCH (08:35)
[2021-05-09] MEDS: Artificial Tears SOLN 15 ML BOTTLE BOTH EYES SCH ×2 (08:37→20:52)
[2021-05-09] MEDS: Insulin LISPRO 300 UNITS/3 ML VIAL SUBQ SCH ×4 (08:37→22:16)
[2021-05-09 09:35] LABS: Basophils % 0.2 %
[2021-05-09 09:36] LABS: Eosinophils # 0.2 K/mcL (0.0-0.6); Eosinophils % 0.8 %; Hemoglobin 12.4 g/dL (11.5-15.4); Immature Granulocytes % 0.5 % (0-4); Immature Platelets 14.6 % (1.1-6.1); Lymphocytes # 1.2 K/mcL (0.6-4.6); Lymphocytes % 6.6 %; Mean Corpuscular HGB Conc 28.8 g/dL (31.6-35.5); Mean Corpuscular Hemoglobin 21.8 pg (28.0-33.3); Mean Corpuscular Volume 75.4 fL (83.0-100.0); Monocytes % 5.3 %; Platelet Count 392 K/mcL (140-400); Red Cell Distribution Width 31.5 % (11.5-14.5); Segmented Neutrophils % 86.6 %; White Blood Count 18.2 K/mcL (4.3-11.1)
[2021-05-09 09:41] LABS: Neutrophils # 15.8 K/mcL (1.6-8.9)
[2021-05-09 10:04] LABS: Anisocytosis 3+ (Not Present)
[2021-05-09 10:05] LABS: Hypochromasia Present (Not Present); Microcytosis Present (Not Present); Platelet Estimate Normal (Normal); Poikilocytosis 1+ (Not Present)
[2021-05-09 10:26] LABS: BUN/Creatinine Ratio 49 (6-26); Blood Urea Nitrogen 33 mg/dL (8-23); Calcium 9.6 mg/dL (8.6-10.3); Carbon Dioxide 27 mEq/L (23-29); Chloride 98 mEq/L (98-107); Glucose 99 mg/dL (70-105); Magnesium 2.4 mg/dL (1.6-2.6); Osmolality,Calculated 291 (280-300); Potassium 4.4 mEq/L (3.5-5.1); Sodium 137 mEq/L (136-145); eGFR For African Americans > 60 (> 60); eGFR For Non-African Americans > 60 (> 60)
[2021-05-09] MEDS: Dexamethasone Sodium Phos/PF 10 MG/ML VIAL IVP SCH (12:11)
[2021-05-10] MEDS: Ipratropium 1 PUFF INHALER IH SCH ×4 (05:07→22:26)
[2021-05-10] MEDS: *HR* Enoxaparin 80 MG/0.8 ML SYRINGE SQ SCH ×2 (05:07→16:53)
[2021-05-10] MEDS: Insulin LISPRO 300 UNITS/3 ML VIAL SUBQ SCH ×4 (07:25→22:33)
[2021-05-10 08:05] LABS: Eosinophils % 0.7 %; Hemoglobin 11.9 g/dL (11.5-15.4)
[2021-05-10 08:08] LABS: Basophils % 0.3 %; Eosinophils # 0.1 K/mcL (0.0-0.6); Immature Granulocytes % 0.4 % (0-4); Lymphocytes # 1.2 K/mcL (0.6-4.6); Lymphocytes % 9.8 %; Mean Corpuscular Hemoglobin 21.6 pg (28.0-33.3); Mean Corpuscular Volume 74.5 fL (83.0-100.0); Monocytes # 0.7 K/mcL (0.0-1.3); Monocytes % 6.1 %; Neutrophils # 9.8 K/mcL (1.6-8.9); Platelet Count 339 K/mcL (140-400); Segmented Neutrophils % 82.7 %; White Blood Count 11.9 K/mcL (4.3-11.1)
[2021-05-10] MEDS: Cholecalciferol (D-3) 1,000 UNIT (25MCG) TABLET PO SCH (08:15)
[2021-05-10] MEDS: Chlorhexidine Rinse 15 ML MOUTHWASH MM SCH ×2 (08:16→22:33)
[2021-05-10] MEDS: Multivit/Ca/Min/Fe/FA 1 TAB TABLET PO SCH (08:16)
[2021-05-10] MEDS: Dexamethasone Sodium Phos/PF 10 MG/ML VIAL IVP SCH (08:16)
[2021-05-10] MEDS: Insulin DETEMIR 100 UNIT/ML X5UNITS SUBQ SCH (08:16)
[2021-05-10] MEDS: Artificial Tears SOLN 15 ML BOTTLE BOTH EYES SCH ×2 (08:17→22:33)
[2021-05-10 08:25] LABS: BUN/Creatinine Ratio 48 (6-26); Blood Urea Nitrogen 30 mg/dL (8-23); Calcium 9.5 mg/dL (8.6-10.3); Carbon Dioxide 28 mEq/L (23-29); Chloride 98 mEq/L (98-107); Glucose 104 mg/dL (70-105); Osmolality,Calculated 288 (280-300); Potassium 4.1 mEq/L (3.5-5.1); Sodium 136 mEq/L (136-145); eGFR For African Americans > 60 (> 60); eGFR For Non-African Americans > 60 (> 60)
[2021-05-10 09:45] LABS: Anisocytosis 2+ (Not Present); Ovalocytes 1+ (Not Present); Polychromasia 2+ (Not Present)
[2021-05-10 09:46] LABS: Platelet Estimate Normal (Normal)
[2021-05-11] MEDS: Ipratropium 1 PUFF INHALER IH SCH ×5 (03:17→20:52)
[2021-05-11 05:44] LABS: Basophils % 0.1 %; Eosinophils # 0.2 K/mcL (0.0-0.6); Eosinophils % 1.7 %; Hemoglobin 12.3 g/dL (11.5-15.4); Immature Granulocytes % 0.3 % (0-4); Immature Platelets 14.1 % (1.1-6.1); Lymphocytes # 1.1 K/mcL (0.6-4.6); Lymphocytes % 7.8 %; Mean Corpuscular HGB Conc 28.6 g/dL (31.6-35.5); Mean Corpuscular Hemoglobin 21.6 pg (28.0-33.3); Mean Corpuscular Volume 75.4 fL (83.0-100.0); Monocytes # 0.9 K/mcL (0.0-1.3); Monocytes % 6.3 %; Platelet Count 318 K/mcL (140-400); Segmented Neutrophils % 83.8 %; White Blood Count 13.9 K/mcL (4.3-11.1)
[2021-05-11 05:49] LABS: Neutrophils # 11.7 K/mcL (1.6-8.9)
[2021-05-11] MEDS: *HR* Enoxaparin 80 MG/0.8 ML SYRINGE SQ SCH ×2 (06:02→17:02)
[2021-05-11 06:03] LABS: BUN/Creatinine Ratio 37 (6-26); Blood Urea Nitrogen 25 mg/dL (8-23); Calcium 9.5 mg/dL (8.6-10.3); Carbon Dioxide 29 mEq/L (23-29); Chloride 99 mEq/L (98-107); Glucose 83 mg/dL (70-105); Osmolality,Calculated 288 (280-300); Sodium 137 mEq/L (136-145); eGFR For African Americans > 60 (> 60); eGFR For Non-African Americans > 60 (> 60)
[2021-05-11 06:20] LABS: Anisocytosis 2+ (Not Present)
[2021-05-11 06:21] LABS: Platelet Estimate Normal (Normal); Poikilocytosis 1+ (Not Present); Smudge Cells Present (Not Present); Tear Drop Cells 1+ (Not Present)
[2021-05-11] MEDS: Insulin LISPRO 300 UNITS/3 ML VIAL SUBQ SCH ×4 (07:48→21:26)
[2021-05-11] MEDS: Multivit/Ca/Min/Fe/FA 1 TAB TABLET PO SCH (10:45)
[2021-05-11] MEDS: Cholecalciferol (D-3) 1,000 UNIT (25MCG) TABLET PO SCH (10:45)
[2021-05-11] MEDS: Artificial Tears SOLN 15 ML BOTTLE BOTH EYES SCH ×2 (10:46→21:26)
[2021-05-11] MEDS: Dexamethasone Sodium Phos/PF 10 MG/ML VIAL IVP SCH (10:46)
[2021-05-11] MEDS: Insulin DETEMIR 100 UNIT/ML X5UNITS SUBQ SCH (10:57)
[2021-05-11] MEDS: Chlorhexidine Rinse 15 ML MOUTHWASH MM SCH ×2 (10:57→21:27)
[2021-05-12 03:24] LABS: Basophils % 0.1 %; Eosinophils % 0.8 %
[2021-05-12 03:26] LABS: Eosinophils # 0.1 K/mcL (0.0-0.6); Hemoglobin 11.5 g/dL (11.5-15.4); Immature Granulocytes % 0.5 % (0-4); Immature Platelets 14.2 % (1.1-6.1); Lymphocytes # 1.5 K/mcL (0.6-4.6); Lymphocytes % 12.5 %; Mean Corpuscular HGB Conc 29.5 g/dL (31.6-35.5); Mean Corpuscular Hemoglobin 21.9 pg (28.0-33.3); Mean Corpuscular Volume 74.4 fL (83.0-100.0); Monocytes # 0.7 K/mcL (0.0-1.3); Monocytes % 6.2 %; Neutrophils # 9.4 K/mcL (1.6-8.9); Platelet Count 302 K/mcL (140-400); Red Blood Count 5.24 M/mcL (3.82-4.97); Segmented Neutrophils % 79.9 %; White Blood Count 11.8 K/mcL (4.3-11.1)
[2021-05-12 03:35] LABS: BUN/Creatinine Ratio 42 (6-26); Blood Urea Nitrogen 26 mg/dL (8-23); Calcium 9.1 mg/dL (8.6-10.3); Carbon Dioxide 26 mEq/L (23-29); Chloride 101 mEq/L (98-107); Glucose 123 mg/dL (70-105); Osmolality,Calculated 288 (280-300); Sodium 136 mEq/L (136-145); eGFR For African Americans > 60 (> 60); eGFR For Non-African Americans > 60 (> 60)
[2021-05-12 03:38] LABS: Anisocytosis 2+ (Not Present); Platelet Estimate Normal (Normal); Poikilocytosis 1+ (Not Present); Tear Drop Cells 1+ (Not Present)
[2021-05-12 03:39] LABS: Smudge Cells Present (Not Present)
[2021-05-12] MEDS: Ipratropium 1 PUFF INHALER IH SCH ×4 (04:40→20:44)
[2021-05-12] MEDS: *HR* Enoxaparin 80 MG/0.8 ML SYRINGE SQ SCH ×2 (05:09→17:47)
[2021-05-12] MEDS: Multivit/Ca/Min/Fe/FA 1 TAB TABLET PO SCH (07:53)
[2021-05-12] MEDS: Insulin DETEMIR 100 UNIT/ML X5UNITS SUBQ SCH (07:54)
[2021-05-12] MEDS: Dexamethasone Sodium Phos/PF 10 MG/ML VIAL IVP SCH (07:54)
[2021-05-12] MEDS: Cholecalciferol (D-3) 1,000 UNIT (25MCG) TABLET PO SCH (07:54)
[2021-05-12] MEDS: Insulin LISPRO 300 UNITS/3 ML VIAL SUBQ SCH ×4 (07:55→20:34)
[2021-05-12] MEDS: Artificial Tears SOLN 15 ML BOTTLE BOTH EYES SCH ×2 (08:05→20:35)
[2021-05-12] MEDS: Chlorhexidine Rinse 15 ML MOUTHWASH MM SCH ×2 (08:05→20:35)
[2021-05-13 02:46] LABS: Mean Corpuscular HGB Conc 29.4 g/dL (31.6-35.5); Mean Corpuscular Hemoglobin 22.1 pg (28.0-33.3)
[2021-05-13 02:47] LABS: Basophils % 0.2 %
[2021-05-13 02:48] LABS: Eosinophils # 0.2 K/mcL (0.0-0.6); Eosinophils % 1.9 %; Hematocrit 41.2 % (35.3-44.9); Hemoglobin 12.1 g/dL (11.5-15.4); Immature Granulocytes % 0.3 % (0-4); Immature Platelets 13.5 % (1.1-6.1); Lymphocytes # 1.2 K/mcL (0.6-4.6); Lymphocytes % 12.8 %; Mean Corpuscular Volume 75.2 fL (83.0-100.0); Monocytes # 0.6 K/mcL (0.0-1.3); Monocytes % 6.3 %; Platelet Count 273 K/mcL (140-400); Red Blood Count 5.48 M/mcL (3.82-4.97); Segmented Neutrophils % 78.5 %; White Blood Count 9.4 K/mcL (4.3-11.1)
[2021-05-13 02:50] LABS: Neutrophils # 7.4 K/mcL (1.6-8.9)
[2021-05-13 02:52] LABS: Anisocytosis 2+ (Not Present); Platelet Estimate Normal (Normal); Poikilocytosis 1+ (Not Present)
[2021-05-13 03:01] LABS: BUN/Creatinine Ratio 48 (6-26); Blood Urea Nitrogen 23 mg/dL (8-23); Calcium 9.2 mg/dL (8.6-10.3); Carbon Dioxide 24 mEq/L (23-29); Chloride 103 mEq/L (98-107); Glucose 92 mg/dL (70-105); Osmolality,Calculated 287 (280-300); Potassium 4.2 mEq/L (3.5-5.1); Sodium 137 mEq/L (136-145); eGFR For African Americans > 60 (> 60); eGFR For Non-African Americans > 60 (> 60)
[2021-05-13] MEDS: Ipratropium 1 PUFF INHALER IH SCH ×4 (03:28→20:25)
[2021-05-13] MEDS: *HR* Enoxaparin 80 MG/0.8 ML SYRINGE SQ SCH ×2 (04:56→18:20)
[2021-05-13] MEDS: Cholecalciferol (D-3) 1,000 UNIT (25MCG) TABLET PO SCH (09:19)
[2021-05-13] MEDS: Dexamethasone Sodium Phos/PF 10 MG/ML VIAL IVP SCH (09:20)
[2021-05-13] MEDS: Loratadine 10 MG TABLET PO SCH (09:20)
[2021-05-13] MEDS: Multivit/Ca/Min/Fe/FA 1 TAB TABLET PO SCH (09:20)
[2021-05-13] MEDS: Insulin DETEMIR 100 UNIT/ML X5UNITS SUBQ SCH (09:20)
[2021-05-13] MEDS: Insulin LISPRO 300 UNITS/3 ML VIAL SUBQ SCH ×4 (09:21→20:36)
[2021-05-13] MEDS: Chlorhexidine Rinse 15 ML MOUTHWASH MM SCH ×2 (09:32→20:36)
[2021-05-13] MEDS: Artificial Tears SOLN 15 ML BOTTLE BOTH EYES SCH ×2 (09:32→20:36)
[2021-05-14 02:32] LABS: Basophils % 0.1 %; Immature Granulocytes % 0.5 % (0-4)
[2021-05-14 02:34] LABS: Eosinophils # 0.2 K/mcL (0.0-0.6); Eosinophils % 1.5 %; Hematocrit 38.4 % (35.3-44.9); Hemoglobin 11.5 g/dL (11.5-15.4); Immature Platelets 14.4 % (1.1-6.1); Lymphocytes % 11.6 %; Mean Corpuscular HGB Conc 29.9 g/dL (31.6-35.5); Mean Corpuscular Hemoglobin 22.8 pg (28.0-33.3); Mean Corpuscular Volume 76.2 fL (83.0-100.0); Monocytes # 0.7 K/mcL (0.0-1.3); Monocytes % 6.6 %; Platelet Count 241 K/mcL (140-400); Red Blood Count 5.04 M/mcL (3.82-4.97); Segmented Neutrophils % 79.7 %; White Blood Count 10.7 K/mcL (4.3-11.1)
[2021-05-14 02:50] LABS: Lymphocytes # 1.2 K/mcL (0.6-4.6); Neutrophils # 8.5 K/mcL (1.6-8.9)
[2021-05-14 03:18] LABS: BUN/Creatinine Ratio 43 (6-26); Blood Urea Nitrogen 23 mg/dL (8-23); Carbon Dioxide 22 mEq/L (23-29); Chloride 103 mEq/L (98-107); Glucose 94 mg/dL (70-105); Magnesium 2.3 mg/dL (1.6-2.6); Osmolality,Calculated 281 (280-300); Potassium 4.5 mEq/L (3.5-5.1); Sodium 134 mEq/L (136-145); eGFR For African Americans > 60 (> 60); eGFR For Non-African Americans > 60 (> 60)
[2021-05-14] MEDS: *HR* Enoxaparin 80 MG/0.8 ML SYRINGE SQ SCH ×2 (05:17→17:24)
[2021-05-14] MEDS: Ipratropium 1 PUFF INHALER IH SCH ×4 (05:45→21:48)
[2021-05-14] MEDS: Loratadine 10 MG TABLET PO SCH (08:34)
[2021-05-14] MEDS: Multivit/Ca/Min/Fe/FA 1 TAB TABLET PO SCH (08:34)
[2021-05-14] MEDS: Cholecalciferol (D-3) 1,000 UNIT (25MCG) TABLET PO SCH (08:34)
[2021-05-14] MEDS: Dexamethasone Sodium Phos/PF 10 MG/ML VIAL IVP SCH (08:35)
[2021-05-14] MEDS: Insulin DETEMIR 100 UNIT/ML X5UNITS SUBQ SCH (08:35)
[2021-05-14] MEDS: Chlorhexidine Rinse 15 ML MOUTHWASH MM SCH ×2 (08:36→21:22)
[2021-05-14] MEDS: Artificial Tears SOLN 15 ML BOTTLE BOTH EYES SCH ×2 (08:36→21:22)
[2021-05-14] MEDS: Insulin LISPRO 300 UNITS/3 ML VIAL SUBQ SCH ×4 (08:37→21:22)
[2021-05-14] MEDS ORDERED: Furosemide 40 MG/4 ML VIAL IVP ONE (10:12)
[2021-05-15] MEDS: Ipratropium 1 PUFF INHALER IH SCH ×4 (04:09→21:49)
[2021-05-15 05:54] LABS: Basophils % 0.1 %; Eosinophils % 1.5 %; Hemoglobin 11.1 g/dL (11.5-15.4); Immature Granulocytes % 0.3 % (0-4); Mean Corpuscular Volume 75.4 fL (83.0-100.0)
[2021-05-15 05:56] LABS: Eosinophils # 0.2 K/mcL (0.0-0.6); Hematocrit 36.8 % (35.3-44.9); Immature Platelets 13.4 % (1.1-6.1); Lymphocytes # 1.1 K/mcL (0.6-4.6); Lymphocytes % 10.6 %; Mean Corpuscular HGB Conc 30.2 g/dL (31.6-35.5); Mean Corpuscular Hemoglobin 22.7 pg (28.0-33.3); Monocytes # 0.7 K/mcL (0.0-1.3); Monocytes % 6.9 %; Neutrophils # 8.2 K/mcL (1.6-8.9); Platelet Count 226 K/mcL (140-400); Red Blood Count 4.88 M/mcL (3.82-4.97); Segmented Neutrophils % 80.6 %; White Blood Count 10.2 K/mcL (4.3-11.1)
[2021-05-15 06:15] LABS: BUN/Creatinine Ratio 42 (6-26); Blood Urea Nitrogen 19 mg/dL (8-23); Calcium 9.3 mg/dL (8.6-10.3); Carbon Dioxide 25 mEq/L (23-29); Chloride 102 mEq/L (98-107); Glucose 86 mg/dL (70-105); Magnesium 2.1 mg/dL (1.6-2.6); Osmolality,Calculated 282 (280-300); Potassium 4.2 mEq/L (3.5-5.1); Sodium 135 mEq/L (136-145); eGFR For African Americans > 60 (> 60); eGFR For Non-African Americans > 60 (> 60)
[2021-05-15] MEDS: *HR* Enoxaparin 80 MG/0.8 ML SYRINGE SQ SCH ×2 (06:15→17:39)
[2021-05-15] MEDS: Chlorhexidine Rinse 15 ML MOUTHWASH MM SCH ×2 (08:12→20:50)
[2021-05-15] MEDS: Insulin LISPRO 300 UNITS/3 ML VIAL SUBQ SCH ×4 (08:12→20:47)
[2021-05-15] MEDS: Dexamethasone Sodium Phos/PF 10 MG/ML VIAL IVP SCH (08:12)
[2021-05-15] MEDS: Artificial Tears SOLN 15 ML BOTTLE BOTH EYES SCH ×2 (08:12→20:50)
[2021-05-15] MEDS: Insulin DETEMIR 100 UNIT/ML X5UNITS SUBQ SCH (08:13)
[2021-05-15] MEDS: Multivit/Ca/Min/Fe/FA 1 TAB TABLET PO SCH (08:13)
[2021-05-15] MEDS: Loratadine 10 MG TABLET PO SCH (08:13)
[2021-05-15] MEDS: Cholecalciferol (D-3) 1,000 UNIT (25MCG) TABLET PO SCH (08:13)
[2021-05-16] MEDS: Ipratropium 1 PUFF INHALER IH SCH ×4 (04:06→21:57)
[2021-05-16] MEDS: *HR* Enoxaparin 80 MG/0.8 ML SYRINGE SQ SCH ×2 (05:42→17:55)
[2021-05-16 06:42] LABS: Segmented Neutrophils % 78.7 %
[2021-05-16 06:44] LABS: Basophils % 0.2 %; Eosinophils % 2.5 %; Hematocrit 36.1 % (35.3-44.9); Hemoglobin 10.6 g/dL (11.5-15.4); Immature Granulocytes % 0.3 % (0-4); Immature Platelets 11.3 % (1.1-6.1); Lymphocytes # 1.1 K/mcL (0.6-4.6); Lymphocytes % 10.9 %; Mean Corpuscular HGB Conc 29.4 g/dL (31.6-35.5); Mean Corpuscular Hemoglobin 22.3 pg (28.0-33.3); Monocytes # 0.7 K/mcL (0.0-1.3); Monocytes % 7.4 %; Neutrophils # 7.7 K/mcL (1.6-8.9); Platelet Count 210 K/mcL (140-400); Red Blood Count 4.75 M/mcL (3.82-4.97); White Blood Count 9.8 K/mcL (4.3-11.1)
[2021-05-16 06:46] LABS: Eosinophils # 0.3 K/mcL (0.0-0.6)
[2021-05-16] MEDS: Insulin LISPRO 300 UNITS/3 ML VIAL SUBQ SCH ×4 (07:26→21:27)
[2021-05-16 07:29] LABS: Alanine Aminotransferase 13 Units/L (7-52); Albumin 3.2 g/dL (3.5-5.7); Albumin/Globulin Ratio 1.3 (1.1-2.2); Alkaline Phosphatase 47 Units/L (34-104); Aspartate Amino Transferase 14 Units/L (13-39); BUN/Creatinine Ratio 36 (6-26); Bilirubin,Total 0.2 mg/dL (0.3-1.0); Blood Urea Nitrogen 16 mg/dL (8-23); Calcium 8.9 mg/dL (8.6-10.3); Carbon Dioxide 23 mEq/L (23-29); Chloride 103 mEq/L (98-107); Ferritin 61 ng/mL (10-120); Globulin 2.4 g/dL (2.4-3.5); Glucose 108 mg/dL (70-105); Lactate Dehydrogenase 328 Units/L (140-271); Osmolality,Calculated 280 (280-300); Potassium 4.4 mEq/L (3.5-5.1); Sodium 134 mEq/L (136-145); Total Protein 5.6 g/dL (6.4-8.9); eGFR For African Americans > 60 (> 60); eGFR For Non-African Americans > 60 (> 60)
[2021-05-16] MEDS: Multivit/Ca/Min/Fe/FA 1 TAB TABLET PO SCH (08:23)
[2021-05-16] MEDS: Loratadine 10 MG TABLET PO SCH (08:24)
[2021-05-16] MEDS: Chlorhexidine Rinse 15 ML MOUTHWASH MM SCH ×2 (08:24→21:27)
[2021-05-16] MEDS: Dexamethasone Sodium Phos/PF 10 MG/ML VIAL IVP SCH (08:24)
[2021-05-16] MEDS: Cholecalciferol (D-3) 1,000 UNIT (25MCG) TABLET PO SCH (08:24)
[2021-05-16] MEDS: Artificial Tears SOLN 15 ML BOTTLE BOTH EYES SCH ×2 (08:31→21:27)
[2021-05-16] MEDS: Insulin DETEMIR 100 UNIT/ML X5UNITS SUBQ SCH (08:44)
[2021-05-16] MEDS ORDERED: Furosemide 40 MG/4 ML VIAL IVP ONE (10:19)
[2021-05-17] MEDS: Ipratropium 1 PUFF INHALER IH SCH ×4 (04:25→21:08)
[2021-05-17] MEDS: *HR* Enoxaparin 80 MG/0.8 ML SYRINGE SQ SCH ×2 (05:40→17:59)
[2021-05-17 06:53] LABS: Basophils % 0.2 %; Eosinophils # 0.3 K/mcL (0.0-0.6); Eosinophils % 2.6 %; Hematocrit 39.9 % (35.3-44.9); Hemoglobin 11.5 g/dL (11.5-15.4); Immature Granulocytes % 0.6 % (0-4); Immature Platelets 12.6 % (1.1-6.1); Lymphocytes # 1.1 K/mcL (0.6-4.6); Lymphocytes % 9.4 %; Mean Corpuscular HGB Conc 28.8 g/dL (31.6-35.5); Mean Corpuscular Hemoglobin 22.2 pg (28.0-33.3); Mean Corpuscular Volume 76.9 fL (83.0-100.0); Monocytes # 0.8 K/mcL (0.0-1.3); Monocytes % 6.9 %; Platelet Count 198 K/mcL (140-400); Red Blood Count 5.19 M/mcL (3.82-4.97); Segmented Neutrophils % 80.3 %; White Blood Count 11.5 K/mcL (4.3-11.1)
[2021-05-17 06:54] LABS: Neutrophils # 9.2 K/mcL (1.6-8.9)
[2021-05-17 06:57] LABS: Alanine Aminotransferase 16 Units/L (7-52); Albumin 3.4 g/dL (3.5-5.7); Albumin/Globulin Ratio 1.3 (1.1-2.2); Alkaline Phosphatase 55 Units/L (34-104); Aspartate Amino Transferase 11 Units/L (13-39); BUN/Creatinine Ratio 40 (6-26); Bilirubin,Total 0.2 mg/dL (0.3-1.0); Blood Urea Nitrogen 20 mg/dL (8-23); Calcium 9.1 mg/dL (8.6-10.3); Carbon Dioxide 25 mEq/L (23-29); Chloride 101 mEq/L (98-107); Globulin 2.6 g/dL (2.4-3.5); Glucose 130 mg/dL (70-105); Osmolality,Calculated 284 (280-300); Potassium 4.2 mEq/L (3.5-5.1); Sodium 135 mEq/L (136-145); eGFR For African Americans > 60 (> 60); eGFR For Non-African Americans > 60 (> 60)
[2021-05-17 07:24] LABS: Hypochromasia Present (Not Present)
[2021-05-17 07:25] LABS: Anisocytosis 1+ (Not Present); Platelet Estimate Normal (Normal); Target Cells 1+ (Not Present)
[2021-05-17] MEDS ORDERED: Furosemide 40 MG/4 ML VIAL IVP ONE (09:27)
[2021-05-17] MEDS: Multivit/Ca/Min/Fe/FA 1 TAB TABLET PO SCH (10:20)
[2021-05-17] MEDS: Loratadine 10 MG TABLET PO SCH (10:21)
[2021-05-17] MEDS: Cholecalciferol (D-3) 1,000 UNIT (25MCG) TABLET PO SCH (10:21)
[2021-05-17] MEDS: Chlorhexidine Rinse 15 ML MOUTHWASH MM SCH ×2 (10:22→21:55)
[2021-05-17] MEDS: Insulin LISPRO 300 UNITS/3 ML VIAL SUBQ SCH ×4 (10:22→21:55)
[2021-05-17] MEDS: Artificial Tears SOLN 15 ML BOTTLE BOTH EYES SCH ×2 (10:23→21:54)
[2021-05-17] MEDS: Insulin DETEMIR 100 UNIT/ML X5UNITS SUBQ SCH (10:23)
[2021-05-17] MEDS: Dexamethasone Sodium Phos/PF 10 MG/ML VIAL IVP SCH (10:47)
[2021-05-18] MEDS: Ipratropium 1 PUFF INHALER IH SCH ×4 (05:05→21:55)
[2021-05-18] MEDS: *HR* Enoxaparin 80 MG/0.8 ML SYRINGE SQ SCH ×2 (05:43→17:16)
[2021-05-18 06:00] LABS: Hemoglobin 11.1 g/dL (11.5-15.4)
[2021-05-18 06:02] LABS: Eosinophils # 0.2 K/mcL (0.0-0.6); Hematocrit 38.2 % (35.3-44.9); Immature Platelets 12.3 % (1.1-6.1); Mean Corpuscular HGB Conc 29.1 g/dL (31.6-35.5); Mean Corpuscular Hemoglobin 22.1 pg (28.0-33.3); Mean Corpuscular Volume 76.1 fL (83.0-100.0); Platelet Count 204 K/mcL (140-400); Red Blood Count 5.02 M/mcL (3.82-4.97); Red Cell Distribution Width 29.2 % (11.5-14.5); White Blood Count 10.3 K/mcL (4.3-11.1)
[2021-05-18 06:26] LABS: Alanine Aminotransferase 18 Units/L (7-52); Albumin 3.3 g/dL (3.5-5.7); Albumin/Globulin Ratio 1.3 (1.1-2.2); Alkaline Phosphatase 55 Units/L (34-104); Aspartate Amino Transferase 11 Units/L (13-39); BUN/Creatinine Ratio 45 (6-26); Bilirubin,Total 0.2 mg/dL (0.3-1.0); Blood Urea Nitrogen 25 mg/dL (8-23); Calcium 9.3 mg/dL (8.6-10.3); Carbon Dioxide 24 mEq/L (23-29); Chloride 101 mEq/L (98-107); Globulin 2.6 g/dL (2.4-3.5); Glucose 144 mg/dL (70-105); Lactate Dehydrogenase 197 Units/L (140-271); Osmolality,Calculated 289 (280-300); Potassium 4.1 mEq/L (3.5-5.1); Sodium 136 mEq/L (136-145); Total Protein 5.9 g/dL (6.4-8.9); eGFR For African Americans > 60 (> 60); eGFR For Non-African Americans > 60 (> 60)
[2021-05-18 06:37] LABS: Ferritin 67 ng/mL (10-120)
[2021-05-18] MEDS: Insulin LISPRO 300 UNITS/3 ML VIAL SUBQ SCH ×4 (08:03→21:32)
[2021-05-18] MEDS: Cholecalciferol (D-3) 1,000 UNIT (25MCG) TABLET PO SCH (08:03)
[2021-05-18] MEDS: Artificial Tears SOLN 15 ML BOTTLE BOTH EYES SCH ×2 (08:03→21:31)
[2021-05-18] MEDS: Chlorhexidine Rinse 15 ML MOUTHWASH MM SCH ×2 (08:03→21:31)
[2021-05-18] MEDS: Dexamethasone Sodium Phos/PF 10 MG/ML VIAL IVP SCH (08:04)
[2021-05-18] MEDS: Multivit/Ca/Min/Fe/FA 1 TAB TABLET PO SCH (08:04)
[2021-05-18] MEDS: Loratadine 10 MG TABLET PO SCH (08:04)
[2021-05-18] MEDS: Insulin DETEMIR 100 UNIT/ML X5UNITS SUBQ SCH (08:15)
[2021-05-18 08:42] LABS: Lymphocytes # 0.8 K/mcL (0.6-4.6); Monocytes # 0.2 K/mcL (0.0-1.3); Neutrophils # 9.1 K/mcL (1.6-8.9); Platelet Estimate Normal (Normal)
[2021-05-18 08:43] LABS: Anisocytosis 1+ (Not Present)
[2021-05-18] MEDS ORDERED: Furosemide 40 MG/4 ML VIAL IVP ONE (10:15)
[2021-05-18] MEDS: Acetaminophen 325 MG TABLET PO PRN (21:31)
[2021-05-18] MEDS: Melatonin 3 MG TABLET PO PRN (21:31)
[2021-05-19 02:35] LABS: BUN/Creatinine Ratio 53 (6-26); Blood Urea Nitrogen 26 mg/dL (8-23); Calcium 9.3 mg/dL (8.6-10.3); Carbon Dioxide 25 mEq/L (23-29); Chloride 101 mEq/L (98-107); Glucose 136 mg/dL (70-105); Osmolality,Calculated 289 (280-300); Potassium 3.9 mEq/L (3.5-5.1); Sodium 136 mEq/L (136-145); eGFR For African Americans > 60 (> 60); eGFR For Non-African Americans > 60 (> 60)
[2021-05-19 03:24] LABS: Hematocrit 35.7 % (35.3-44.9); Hemoglobin 10.9 g/dL (11.5-15.4); Mean Corpuscular HGB Conc 30.5 g/dL (31.6-35.5); Mean Corpuscular Hemoglobin 23.1 pg (28.0-33.3); Mean Corpuscular Volume 75.6 fL (83.0-100.0); Neutrophils # 7.4 K/mcL (1.6-8.9); Platelet Count 174 K/mcL (140-400); Red Blood Count 4.72 M/mcL (3.82-4.97); White Blood Count 9.3 K/mcL (4.3-11.1)
[2021-05-19 03:45] LABS: Eosinophils # 0.2 K/mcL (0.0-0.6); Hypochromasia Present (Not Present); Lymphocytes # 0.8 K/mcL (0.6-4.6); Monocytes # 0.9 K/mcL (0.0-1.3)
[2021-05-19 03:46] LABS: Anisocytosis 1+ (Not Present); Platelet Estimate Normal (Normal); Target Cells 1+ (Not Present)
[2021-05-19 03:47] LABS: Reactive Lymphocytes Present (Not Present)
[2021-05-19] MEDS: Ipratropium 1 PUFF INHALER IH SCH ×4 (04:19→20:25)
[2021-05-19] MEDS: *HR* Enoxaparin 80 MG/0.8 ML SYRINGE SQ SCH ×2 (07:33→17:24)
[2021-05-19] MEDS ORDERED: Furosemide 40 MG/4 ML VIAL IVP ONE (09:15)
[2021-05-19] MEDS: Cholecalciferol (D-3) 1,000 UNIT (25MCG) TABLET PO SCH (09:18)
[2021-05-19] MEDS: Dexamethasone Sodium Phos/PF 10 MG/ML VIAL IVP SCH (09:19)
[2021-05-19] MEDS: Loratadine 10 MG TABLET PO SCH (09:19)
[2021-05-19] MEDS: Multivit/Ca/Min/Fe/FA 1 TAB TABLET PO SCH (09:19)
[2021-05-19] MEDS: Artificial Tears SOLN 15 ML BOTTLE BOTH EYES SCH ×2 (09:20→23:13)
[2021-05-19] MEDS: Insulin DETEMIR 100 UNIT/ML X5UNITS SUBQ SCH (09:20)
[2021-05-19] MEDS: Chlorhexidine Rinse 15 ML MOUTHWASH MM SCH ×2 (09:21→23:12)
[2021-05-19] MEDS: Insulin LISPRO 300 UNITS/3 ML VIAL SUBQ SCH ×4 (09:26→23:14)
[2021-05-20] MEDS: Ipratropium 1 PUFF INHALER IH SCH ×4 (03:44→21:03)
[2021-05-20 05:04] LABS: Basophils % 0.2 %; Hemoglobin 10.9 g/dL (11.5-15.4); Lymphocytes % 12.8 %; Red Cell Distribution Width 28.4 % (11.5-14.5)
[2021-05-20 05:06] LABS: Eosinophils # 0.2 K/mcL (0.0-0.6); Hematocrit 35.9 % (35.3-44.9); Immature Granulocytes % 0.7 % (0-4); Immature Platelets 8.9 % (1.1-6.1); Lymphocytes # 1.2 K/mcL (0.6-4.6); Mean Corpuscular HGB Conc 30.4 g/dL (31.6-35.5); Mean Corpuscular Hemoglobin 22.9 pg (28.0-33.3); Mean Corpuscular Volume 75.3 fL (83.0-100.0); Monocytes # 0.7 K/mcL (0.0-1.3); Monocytes % 7.1 %; Neutrophils # 7.4 K/mcL (1.6-8.9); Platelet Count 219 K/mcL (140-400); Red Blood Count 4.77 M/mcL (3.82-4.97); Segmented Neutrophils % 77.2 %; White Blood Count 9.6 K/mcL (4.3-11.1)
[2021-05-20 05:25] LABS: Alanine Aminotransferase 17 Units/L (7-52); Albumin 3.2 g/dL (3.5-5.7); Albumin/Globulin Ratio 1.3 (1.1-2.2); Alkaline Phosphatase 51 Units/L (34-104); Aspartate Amino Transferase 9 Units/L (13-39); BUN/Creatinine Ratio 49 (6-26); Bilirubin,Total 0.2 mg/dL (0.3-1.0); Blood Urea Nitrogen 24 mg/dL (8-23); Calcium 9.1 mg/dL (8.6-10.3); Carbon Dioxide 27 mEq/L (23-29); Chloride 100 mEq/L (98-107); Globulin 2.5 g/dL (2.4-3.5); Glucose 159 mg/dL (70-105); Lactate Dehydrogenase 176 Units/L (140-271); Osmolality,Calculated 287 (280-300); Potassium 3.9 mEq/L (3.5-5.1); Sodium 135 mEq/L (136-145); Total Protein 5.7 g/dL (6.4-8.9); eGFR For African Americans > 60 (> 60); eGFR For Non-African Americans > 60 (> 60)
[2021-05-20 05:37] LABS: Anisocytosis 2+ (Not Present); Hypochromasia Present (Not Present); Poikilocytosis 1+ (Not Present)
[2021-05-20 05:41] LABS: Ferritin 62 ng/mL (10-120)
[2021-05-20] MEDS: *HR* Enoxaparin 80 MG/0.8 ML SYRINGE SQ SCH ×2 (05:50→16:42)
[2021-05-20] MEDS: Insulin LISPRO 300 UNITS/3 ML VIAL SUBQ SCH ×4 (08:00→22:44)
[2021-05-20] MEDS: Dexamethasone Sodium Phos/PF 10 MG/ML VIAL IVP SCH (09:17)
[2021-05-20] MEDS: Chlorhexidine Rinse 15 ML MOUTHWASH MM SCH ×2 (09:18→21:41)
[2021-05-20] MEDS: Multivit/Ca/Min/Fe/FA 1 TAB TABLET PO SCH (09:18)
[2021-05-20] MEDS: Loratadine 10 MG TABLET PO SCH (09:19)
[2021-05-20] MEDS: Cholecalciferol (D-3) 1,000 UNIT (25MCG) TABLET PO SCH (09:19)
[2021-05-20] MEDS: Artificial Tears SOLN 15 ML BOTTLE BOTH EYES SCH ×2 (09:20→21:41)
[2021-05-20] MEDS: Insulin DETEMIR 100 UNIT/ML X5UNITS SUBQ SCH (12:26)
[2021-05-20] MEDS: Furosemide 20 MG/2 ML VIAL IVP ONE (16:41)
[2021-05-21] MEDS: Ipratropium 1 PUFF INHALER IH SCH ×4 (04:57→20:24)
[2021-05-21] MEDS: *HR* Enoxaparin 80 MG/0.8 ML SYRINGE SQ SCH ×2 (05:45→17:46)
[2021-05-21 06:27] LABS: Basophils % 0.4 %; Eosinophils # 0.3 K/mcL (0.0-0.6); Eosinophils % 3.5 %; Hematocrit 36.8 % (35.3-44.9); Hemoglobin 10.7 g/dL (11.5-15.4); Immature Granulocytes % 0.7 % (0-4); Immature Platelets 9.4 % (1.1-6.1); Lymphocytes # 1.3 K/mcL (0.6-4.6); Lymphocytes % 16.4 %; Mean Corpuscular HGB Conc 29.1 g/dL (31.6-35.5); Mean Corpuscular Hemoglobin 22.2 pg (28.0-33.3); Mean Corpuscular Volume 76.2 fL (83.0-100.0); Monocytes # 0.6 K/mcL (0.0-1.3); Monocytes % 7.8 %; Neutrophils # 5.8 K/mcL (1.6-8.9); Platelet Count 233 K/mcL (140-400); Red Blood Count 4.83 M/mcL (3.82-4.97); Red Cell Distribution Width 28.6 % (11.5-14.5); Segmented Neutrophils % 71.2 %; White Blood Count 8.1 K/mcL (4.3-11.1)
[2021-05-21 06:43] LABS: BUN/Creatinine Ratio 40 (6-26); Blood Urea Nitrogen 18 mg/dL (8-23); Calcium 9.4 mg/dL (8.6-10.3); Carbon Dioxide 26 mEq/L (23-29); Chloride 100 mEq/L (98-107); Glucose 102 mg/dL (70-105); Osmolality,Calculated 286 (280-300); Potassium 4.3 mEq/L (3.5-5.1); Sodium 137 mEq/L (136-145); eGFR For African Americans > 60 (> 60); eGFR For Non-African Americans > 60 (> 60)
[2021-05-21 07:14] LABS: Anisocytosis 2+ (Not Present); Hypochromasia Present (Not Present); Microcytosis Present (Not Present); Platelet Estimate Normal (Normal)
[2021-05-21] MEDS: Insulin LISPRO 300 UNITS/3 ML VIAL SUBQ SCH ×4 (09:00→22:40)
[2021-05-21] MEDS: Cholecalciferol (D-3) 1,000 UNIT (25MCG) TABLET PO SCH (10:35)
[2021-05-21] MEDS: Loratadine 10 MG TABLET PO SCH (10:36)
[2021-05-21] MEDS: Artificial Tears SOLN 15 ML BOTTLE BOTH EYES SCH (10:36)
[2021-05-21] MEDS: Insulin DETEMIR 100 UNIT/ML X5UNITS SUBQ SCH (10:36)
[2021-05-21] MEDS: Chlorhexidine Rinse 15 ML MOUTHWASH MM SCH (10:36)
[2021-05-21] MEDS: Multivit/Ca/Min/Fe/FA 1 TAB TABLET PO SCH (10:37)
[2021-05-21] MEDS ORDERED: Furosemide 20 MG/2 ML VIAL IVP ONE (12:12)
[2021-05-22] MEDS: Ipratropium 1 PUFF INHALER IH SCH ×4 (04:49→20:43)
[2021-05-22] MEDS: Artificial Tears SOLN 15 ML BOTTLE BOTH EYES SCH ×3 (05:24→19:42)
[2021-05-22] MEDS: Chlorhexidine Rinse 15 ML MOUTHWASH MM SCH ×3 (05:24→19:42)
[2021-05-22] MEDS: *HR* Enoxaparin 80 MG/0.8 ML SYRINGE SQ SCH ×2 (05:25→17:00)
[2021-05-22 05:56] LABS: Basophils % 0.6 %; Eosinophils % 4.2 %; Hemoglobin 10.7 g/dL (11.5-15.4); Red Cell Distribution Width 28.5 % (11.5-14.5)
[2021-05-22 05:58] LABS: Basophils # 0.1 K/mcL (0.0-0.2); Eosinophils # 0.4 K/mcL (0.0-0.6); Hematocrit 36.2 % (35.3-44.9); Immature Granulocytes % 0.7 % (0-4); Immature Platelets 7.6 % (1.1-6.1); Lymphocytes # 1.2 K/mcL (0.6-4.6); Lymphocytes % 13.3 %; Mean Corpuscular HGB Conc 29.6 g/dL (31.6-35.5); Mean Corpuscular Hemoglobin 22.6 pg (28.0-33.3); Mean Corpuscular Volume 76.4 fL (83.0-100.0); Monocytes # 0.7 K/mcL (0.0-1.3); Monocytes % 7.4 %; Neutrophils # 6.6 K/mcL (1.6-8.9); Platelet Count 230 K/mcL (140-400); Red Blood Count 4.74 M/mcL (3.82-4.97); Segmented Neutrophils % 73.8 %; White Blood Count 8.9 K/mcL (4.3-11.1)
[2021-05-22 06:14] LABS: BUN/Creatinine Ratio 32 (6-26); Blood Urea Nitrogen 16 mg/dL (8-23); Calcium 8.9 mg/dL (8.6-10.3); Carbon Dioxide 25 mEq/L (23-29); Chloride 101 mEq/L (98-107); Glucose 176 mg/dL (70-105); Osmolality,Calculated 285 (280-300); Potassium 4.2 mEq/L (3.5-5.1); Sodium 135 mEq/L (136-145); eGFR For African Americans > 60 (> 60); eGFR For Non-African Americans > 60 (> 60)
[2021-05-22 06:41] LABS: Anisocytosis 2+ (Not Present); Hypochromasia Present (Not Present); Microcytosis Present (Not Present); Platelet Estimate Normal (Normal)
[2021-05-22] MEDS: Cholecalciferol (D-3) 1,000 UNIT (25MCG) TABLET PO SCH (09:36)
[2021-05-22] MEDS: Multivit/Ca/Min/Fe/FA 1 TAB TABLET PO SCH (09:37)
[2021-05-22] MEDS: Loratadine 10 MG TABLET PO SCH (09:37)
[2021-05-22] MEDS: Insulin LISPRO 300 UNITS/3 ML VIAL SUBQ SCH ×4 (09:38→20:01)
[2021-05-22] MEDS: Insulin DETEMIR 100 UNIT/ML X5UNITS SUBQ SCH (09:40)
[2021-05-22] MEDS ORDERED: Furosemide 20 MG/2 ML VIAL IVP ONE (09:54)
[2021-05-23 02:50] LABS: BUN/Creatinine Ratio 31 (6-26); Blood Urea Nitrogen 15 mg/dL (8-23); Calcium 8.6 mg/dL (8.6-10.3); Carbon Dioxide 24 mEq/L (23-29); Chloride 101 mEq/L (98-107); Glucose 214 mg/dL (70-105); Osmolality,Calculated 287 (280-300); Potassium 3.9 mEq/L (3.5-5.1); Sodium 135 mEq/L (136-145); eGFR For African Americans > 60 (> 60); eGFR For Non-African Americans > 60 (> 60)
[2021-05-23] MEDS: Ipratropium 1 PUFF INHALER IH SCH ×4 (03:32→20:50)
[2021-05-23] MEDS: *HR* Enoxaparin 80 MG/0.8 ML SYRINGE SQ SCH ×2 (05:39→17:22)
[2021-05-23] MEDS ORDERED: Furosemide 20 MG/2 ML VIAL IVP ONE (07:39)
[2021-05-23] MEDS: Chlorhexidine Rinse 15 ML MOUTHWASH MM SCH ×2 (10:43→20:26)
[2021-05-23] MEDS: Furosemide 20 MG/2 ML VIAL IVP ONE (10:43)
[2021-05-23] MEDS: Cholecalciferol (D-3) 1,000 UNIT (25MCG) TABLET PO SCH (10:44)
[2021-05-23] MEDS: Multivit/Ca/Min/Fe/FA 1 TAB TABLET PO SCH (10:44)
[2021-05-23] MEDS: Loratadine 10 MG TABLET PO SCH (10:44)
[2021-05-23] MEDS: Saline Nasal Spray 44 ML BOTTLE NS PRN (10:45)
[2021-05-23] MEDS: Artificial Tears SOLN 15 ML BOTTLE BOTH EYES SCH ×2 (10:45→20:27)
[2021-05-23] MEDS: Insulin DETEMIR 100 UNIT/ML X5UNITS SUBQ SCH (10:46)
[2021-05-23] MEDS: Insulin LISPRO 300 UNITS/3 ML VIAL SUBQ SCH ×4 (10:46→20:27)
[2021-05-24] MEDS: Ipratropium 1 PUFF INHALER IH SCH ×4 (03:46→21:07)
[2021-05-24] MEDS: *HR* Enoxaparin 80 MG/0.8 ML SYRINGE SQ SCH (05:05)
[2021-05-24 06:27] LABS: BUN/Creatinine Ratio 29 (6-26); Blood Urea Nitrogen 12 mg/dL (8-23); Calcium 8.8 mg/dL (8.6-10.3); Carbon Dioxide 27 mEq/L (23-29); Chloride 102 mEq/L (98-107); Glucose 194 mg/dL (70-105); Osmolality,Calculated 287 (280-300); Potassium 3.9 mEq/L (3.5-5.1); Sodium 136 mEq/L (136-145); eGFR For African Americans > 60 (> 60); eGFR For Non-African Americans > 60 (> 60)
[2021-05-24 06:31] LABS: Hemoglobin 9.7 g/dL (11.5-15.4)
[2021-05-24 06:33] LABS: Basophils % 0.5 %; Eosinophils # 0.4 K/mcL (0.0-0.6); Eosinophils % 4.5 %; Hematocrit 33.1 % (35.3-44.9); Immature Granulocytes % 0.6 % (0-4); Immature Platelets 7.9 % (1.1-6.1); Lymphocytes # 1.2 K/mcL (0.6-4.6); Lymphocytes % 14.3 %; Mean Corpuscular HGB Conc 29.3 g/dL (31.6-35.5); Mean Corpuscular Hemoglobin 22.2 pg (28.0-33.3); Mean Corpuscular Volume 75.9 fL (83.0-100.0); Monocytes # 0.7 K/mcL (0.0-1.3); Monocytes % 8.3 %; Neutrophils # 5.9 K/mcL (1.6-8.9); Platelet Count 227 K/mcL (140-400); Red Blood Count 4.36 M/mcL (3.82-4.97); Red Cell Distribution Width 28.1 % (11.5-14.5); Segmented Neutrophils % 71.8 %; White Blood Count 8.2 K/mcL (4.3-11.1)
[2021-05-24] MEDS ORDERED: Furosemide 40 MG/4 ML VIAL IVP ONE ×2 (07:26→08:58)
[2021-05-24] MEDS: Loratadine 10 MG TABLET PO SCH (07:40)
[2021-05-24] MEDS: Cholecalciferol (D-3) 1,000 UNIT (25MCG) TABLET PO SCH (07:40)
[2021-05-24] MEDS: Insulin LISPRO 300 UNITS/3 ML VIAL SUBQ SCH ×4 (07:41→21:25)
[2021-05-24] MEDS: Chlorhexidine Rinse 15 ML MOUTHWASH MM SCH ×2 (07:41→21:24)
[2021-05-24] MEDS: Multivit/Ca/Min/Fe/FA 1 TAB TABLET PO SCH (07:41)
[2021-05-24] MEDS: Insulin DETEMIR 100 UNIT/ML X5UNITS SUBQ SCH (07:41)
[2021-05-24] MEDS: Artificial Tears SOLN 15 ML BOTTLE BOTH EYES SCH ×2 (07:41→21:24)
[2021-05-24 14:08] LABS: Anisocytosis 3+ (Not Present); Polychromasia 2+ (Not Present)
[2021-05-24 14:09] LABS: Platelet Estimate Normal (Normal)
[2021-05-24] MEDS: Apixaban 5 MG TABLET PO SCH (16:37)
[2021-05-25] MEDS: Ipratropium 1 PUFF INHALER IH SCH ×4 (03:30→21:10)
[2021-05-25] MEDS: Apixaban 5 MG TABLET PO SCH ×2 (06:12→17:22)
[2021-05-25 07:40] LABS: Basophils % 0.6 %
[2021-05-25 07:42] LABS: Eosinophils # 0.3 K/mcL (0.0-0.6); Eosinophils % 4.4 %; Hematocrit 32.4 % (35.3-44.9); Hemoglobin 9.7 g/dL (11.5-15.4); Immature Granulocytes % 0.7 % (0-4); Immature Platelets 5.4 % (1.1-6.1); Lymphocytes % 14.4 %; Mean Corpuscular HGB Conc 29.9 g/dL (31.6-35.5); Mean Corpuscular Hemoglobin 22.6 pg (28.0-33.3); Mean Corpuscular Volume 75.5 fL (83.0-100.0); Monocytes # 0.6 K/mcL (0.0-1.3); Platelet Count 257 K/mcL (140-400); Red Blood Count 4.29 M/mcL (3.82-4.97); Red Cell Distribution Width 27.9 % (11.5-14.5); Segmented Neutrophils % 70.9 %
[2021-05-25 07:52] LABS: BUN/Creatinine Ratio 29 (6-26); Blood Urea Nitrogen 13 mg/dL (8-23); Calcium 8.8 mg/dL (8.6-10.3); Carbon Dioxide 26 mEq/L (23-29); Chloride 101 mEq/L (98-107); Glucose 216 mg/dL (70-105); Osmolality,Calculated 287 (280-300); Potassium 3.9 mEq/L (3.5-5.1); Sodium 135 mEq/L (136-145); eGFR For African Americans > 60 (> 60); eGFR For Non-African Americans > 60 (> 60)
[2021-05-25] MEDS: Chlorhexidine Rinse 15 ML MOUTHWASH MM SCH ×2 (08:15→21:01)
[2021-05-25] MEDS: Multivit/Ca/Min/Fe/FA 1 TAB TABLET PO SCH (08:15)
[2021-05-25] MEDS: Artificial Tears SOLN 15 ML BOTTLE BOTH EYES SCH ×2 (08:15→21:01)
[2021-05-25] MEDS: Loratadine 10 MG TABLET PO SCH (08:15)
[2021-05-25] MEDS: Cholecalciferol (D-3) 1,000 UNIT (25MCG) TABLET PO SCH (08:15)
[2021-05-25] MEDS: Insulin DETEMIR 100 UNIT/ML X5UNITS SUBQ SCH (08:16)
[2021-05-25] MEDS: Insulin LISPRO 300 UNITS/3 ML VIAL SUBQ SCH ×4 (08:16→21:02)
[2021-05-25] MEDS: Saline Nasal Spray 44 ML BOTTLE NS PRN (08:21)
[2021-05-25 08:25] LABS: Anisocytosis 2+ (Not Present)
[2021-05-25 08:26] LABS: Hypochromasia Present (Not Present); Microcytosis Present (Not Present); Platelet Estimate Normal (Normal)
[2021-05-25] MEDS ORDERED: Furosemide 20 MG/2 ML VIAL IVP ONE (09:48)
[2021-05-26 01:46] LABS: Eosinophils % 4.7 %; Monocytes % 9.3 %; Red Cell Distribution Width 27.9 % (11.5-14.5)
[2021-05-26 01:48] LABS: Basophils # 0.1 K/mcL (0.0-0.2); Basophils % 0.6 %; Eosinophils # 0.4 K/mcL (0.0-0.6); Hematocrit 30.8 % (35.3-44.9); Immature Granulocytes % 0.6 % (0-4); Immature Platelets 5.3 % (1.1-6.1); Lymphocytes # 1.4 K/mcL (0.6-4.6); Lymphocytes % 17.1 %; Mean Corpuscular HGB Conc 29.2 g/dL (31.6-35.5); Mean Corpuscular Hemoglobin 22.4 pg (28.0-33.3); Mean Corpuscular Volume 76.8 fL (83.0-100.0); Mean Platelet Volume 10.7 fL (9.4-12.4); Neutrophils # 5.4 K/mcL (1.6-8.9); Nucleated Red Blood Cells 0.2 /100 WBC (0); Platelet Count 263 K/mcL (140-400); Red Blood Count 4.01 M/mcL (3.82-4.97); Segmented Neutrophils % 67.7 %
[2021-05-26 01:51] LABS: Monocytes # 0.7 K/mcL (0.0-1.3)
[2021-05-26 01:52] LABS: Anisocytosis 3+ (Not Present); Platelet Estimate Normal (Normal)
[2021-05-26 02:03] LABS: BUN/Creatinine Ratio 27 (6-26); Blood Urea Nitrogen 14 mg/dL (8-23); Calcium 8.8 mg/dL (8.6-10.3); Carbon Dioxide 25 mEq/L (23-29); Chloride 101 mEq/L (98-107); Glucose 205 mg/dL (70-105); Osmolality,Calculated 284 (280-300); Potassium 4.3 mEq/L (3.5-5.1); Sodium 134 mEq/L (136-145); eGFR For African Americans > 60 (> 60); eGFR For Non-African Americans > 60 (> 60)
[2021-05-26] MEDS: Apixaban 5 MG TABLET PO SCH ×2 (04:42→19:28)
[2021-05-26] MEDS: Ipratropium 1 PUFF INHALER IH SCH ×4 (04:59→20:07)
[2021-05-26] MEDS: Cholecalciferol (D-3) 1,000 UNIT (25MCG) TABLET PO SCH (08:38)
[2021-05-26] MEDS: Loratadine 10 MG TABLET PO SCH (08:38)
[2021-05-26] MEDS: Multivit/Ca/Min/Fe/FA 1 TAB TABLET PO SCH (08:38)
[2021-05-26] MEDS: Chlorhexidine Rinse 15 ML MOUTHWASH MM SCH ×2 (08:38→21:48)
[2021-05-26] MEDS: Artificial Tears SOLN 15 ML BOTTLE BOTH EYES SCH ×2 (08:40→21:48)
[2021-05-26] MEDS: Insulin LISPRO 300 UNITS/3 ML VIAL SUBQ SCH ×4 (08:40→21:48)
[2021-05-26] MEDS: Insulin DETEMIR 100 UNIT/ML X5UNITS SUBQ SCH (08:42)
[2021-05-27] MEDS: Ipratropium 1 PUFF INHALER IH SCH ×4 (03:41→20:40)
[2021-05-27] MEDS: Apixaban 5 MG TABLET PO SCH ×2 (05:52→17:06)
[2021-05-27] MEDS: Chlorhexidine Rinse 15 ML MOUTHWASH MM SCH ×2 (08:19→20:44)
[2021-05-27] MEDS: Insulin DETEMIR 100 UNIT/ML X5UNITS SUBQ SCH ×2 (08:20→20:45)
[2021-05-27] MEDS: Multivit/Ca/Min/Fe/FA 1 TAB TABLET PO SCH (08:20)
[2021-05-27] MEDS: Loratadine 10 MG TABLET PO SCH (08:20)
[2021-05-27] MEDS: Cholecalciferol (D-3) 1,000 UNIT (25MCG) TABLET PO SCH (08:20)
[2021-05-27] MEDS: Artificial Tears SOLN 15 ML BOTTLE BOTH EYES SCH ×2 (08:21→20:44)
[2021-05-27] MEDS: Insulin LISPRO 300 UNITS/3 ML VIAL SUBQ SCH ×4 (08:21→20:45)
[2021-05-28] MEDS: Ipratropium 1 PUFF INHALER IH SCH ×4 (04:07→22:21)
[2021-05-28 05:35] LABS: BUN/Creatinine Ratio 20 (6-26); Blood Urea Nitrogen 8 mg/dL (8-23); Calcium 8.9 mg/dL (8.6-10.3); Carbon Dioxide 26 mEq/L (23-29); Chloride 102 mEq/L (98-107); Glucose 110 mg/dL (70-105); Magnesium 1.9 mg/dL (1.6-2.6); Osmolality,Calculated 279 (280-300); Potassium 4.2 mEq/L (3.5-5.1); Sodium 135 mEq/L (136-145); eGFR For African Americans > 60 (> 60); eGFR For Non-African Americans > 60 (> 60)
[2021-05-28] MEDS: Apixaban 5 MG TABLET PO SCH ×2 (06:17→16:43)
[2021-05-28] MEDS ORDERED: Furosemide 20 MG TABLET PO PRN ×2 (07:38→07:40)
[2021-05-28] MEDS: Chlorhexidine Rinse 15 ML MOUTHWASH MM SCH ×2 (10:09→20:22)
[2021-05-28] MEDS: levoFLOXacin 750 MG TABLET PO SCH (10:10)
[2021-05-28] MEDS: Cholecalciferol (D-3) 1,000 UNIT (25MCG) TABLET PO SCH (10:10)
[2021-05-28] MEDS: Multivit/Ca/Min/Fe/FA 1 TAB TABLET PO SCH (10:10)
[2021-05-28] MEDS: Loratadine 10 MG TABLET PO SCH (10:10)
[2021-05-28] MEDS: Insulin DETEMIR 100 UNIT/ML X5UNITS SUBQ SCH ×2 (10:15→20:22)
[2021-05-28] MEDS: Insulin LISPRO 300 UNITS/3 ML VIAL SUBQ SCH ×4 (10:20→20:22)
[2021-05-28] MEDS: Artificial Tears SOLN 15 ML BOTTLE BOTH EYES SCH ×2 (10:20→20:21)
[2021-05-28] MEDS: Furosemide 20 MG TABLET PO SCH (16:46)
[2021-05-29] MEDS: Ipratropium 1 PUFF INHALER IH SCH ×4 (04:35→22:08)
[2021-05-29] MEDS: Apixaban 5 MG TABLET PO SCH ×2 (05:06→18:27)
[2021-05-29] MEDS: Insulin LISPRO 300 UNITS/3 ML VIAL SUBQ SCH ×4 (08:09→22:33)
[2021-05-29] MEDS: levoFLOXacin 750 MG TABLET PO SCH (08:11)
[2021-05-29] MEDS: Loratadine 10 MG TABLET PO SCH (08:11)
[2021-05-29] MEDS: Furosemide 20 MG TABLET PO SCH (08:11)
[2021-05-29] MEDS: Multivit/Ca/Min/Fe/FA 1 TAB TABLET PO SCH (08:11)
[2021-05-29] MEDS: Cholecalciferol (D-3) 1,000 UNIT (25MCG) TABLET PO SCH (08:12)
[2021-05-29] MEDS: Insulin DETEMIR 100 UNIT/ML X5UNITS SUBQ SCH ×2 (08:15→22:35)
[2021-05-29] MEDS: Artificial Tears SOLN 15 ML BOTTLE BOTH EYES SCH ×2 (08:16→22:34)
[2021-05-29] MEDS: Chlorhexidine Rinse 15 ML MOUTHWASH MM SCH ×2 (08:16→22:34)
[2021-05-30 01:53] LABS: BUN/Creatinine Ratio 22 (6-26); Blood Urea Nitrogen 12 mg/dL (8-23); Calcium 8.7 mg/dL (8.6-10.3); Carbon Dioxide 26 mEq/L (23-29); Chloride 98 mEq/L (98-107); Glucose 303 mg/dL (70-105); Magnesium 1.9 mg/dL (1.6-2.6); Osmolality,Calculated 285 (280-300); Phosphorous 3.2 mg/dL (2.7-4.5); Sodium 132 mEq/L (136-145); eGFR For African Americans > 60 (> 60); eGFR For Non-African Americans > 60 (> 60)
[2021-05-30] MEDS: Ipratropium 1 PUFF INHALER IH SCH ×4 (04:21→20:41)
[2021-05-30 05:11] LABS: Basophils % 0.4 %; Eosinophils # 0.3 K/mcL (0.0-0.6); Hematocrit 28.8 % (35.3-44.9); Hemoglobin 8.5 g/dL (11.5-15.4); Immature Granulocytes % 0.7 % (0-4); Lymphocytes # 1.3 K/mcL (0.6-4.6); Lymphocytes % 19.1 %; Mean Corpuscular HGB Conc 29.5 g/dL (31.6-35.5); Mean Corpuscular Hemoglobin 22.4 pg (28.0-33.3); Mean Platelet Volume 10.6 fL (9.4-12.4); Monocytes # 0.7 K/mcL (0.0-1.3); Monocytes % 9.9 %; Neutrophils # 4.5 K/mcL (1.6-8.9); Platelet Count 378 K/mcL (140-400); Red Blood Count 3.79 M/mcL (3.82-4.97); Red Cell Distribution Width 27.3 % (11.5-14.5); Segmented Neutrophils % 65.9 %; White Blood Count 6.8 K/mcL (4.3-11.1)
[2021-05-30 06:14] LABS: Anisocytosis 2+ (Not Present); Large Platelets Present (Not Present); Microcytosis Present (Not Present); Platelet Estimate Normal (Normal); Polychromasia 1+ (Not Present); Target Cells 1+ (Not Present)
[2021-05-30] MEDS: Apixaban 5 MG TABLET PO SCH ×2 (06:47→16:55)
[2021-05-30] MEDS: Insulin LISPRO 300 UNITS/3 ML VIAL SUBQ SCH ×4 (08:51→22:17)
[2021-05-30] MEDS: Artificial Tears SOLN 15 ML BOTTLE BOTH EYES SCH ×2 (08:52→20:30)
[2021-05-30] MEDS: Loratadine 10 MG TABLET PO SCH (08:52)
[2021-05-30] MEDS: Chlorhexidine Rinse 15 ML MOUTHWASH MM SCH ×2 (08:52→20:31)
[2021-05-30] MEDS: Cholecalciferol (D-3) 1,000 UNIT (25MCG) TABLET PO SCH (08:53)
[2021-05-30] MEDS: Multivit/Ca/Min/Fe/FA 1 TAB TABLET PO SCH (08:53)
[2021-05-30] MEDS: Furosemide 20 MG TABLET PO SCH (08:53)
[2021-05-30] MEDS: levoFLOXacin 750 MG TABLET PO SCH (08:53)
[2021-05-30] MEDS: Insulin DETEMIR 100 UNIT/ML X5UNITS SUBQ SCH ×2 (08:55→22:16)
[2021-05-31] MEDS: Ipratropium 1 PUFF INHALER IH SCH ×4 (04:09→21:22)
[2021-05-31] MEDS: Apixaban 5 MG TABLET PO SCH ×2 (05:23→17:14)
[2021-05-31] MEDS: Insulin LISPRO 300 UNITS/3 ML VIAL SUBQ SCH ×4 (08:27→20:19)
[2021-05-31] MEDS: polyethylene glycoL 3350 17 GM POWD.PACK PO SCH (08:27)
[2021-05-31] MEDS: levoFLOXacin 750 MG TABLET PO SCH (08:27)
[2021-05-31] MEDS: Furosemide 20 MG TABLET PO SCH (08:27)
[2021-05-31] MEDS: Cholecalciferol (D-3) 1,000 UNIT (25MCG) TABLET PO SCH (08:27)
[2021-05-31] MEDS: Chlorhexidine Rinse 15 ML MOUTHWASH MM SCH ×2 (08:28→20:19)
[2021-05-31] MEDS: Loratadine 10 MG TABLET PO SCH (08:28)
[2021-05-31] MEDS: Multivit/Ca/Min/Fe/FA 1 TAB TABLET PO SCH (08:28)
[2021-05-31] MEDS: Artificial Tears SOLN 15 ML BOTTLE BOTH EYES SCH ×2 (08:28→20:19)
[2021-05-31] MEDS: Insulin DETEMIR 100 UNIT/ML X5UNITS SUBQ SCH ×2 (08:34→20:19)
[2021-05-31] MEDS: Melatonin 3 MG TABLET PO PRN (20:27)
[2021-06-01] MEDS: Ipratropium 1 PUFF INHALER IH SCH ×4 (04:40→21:11)
[2021-06-01] MEDS: Apixaban 5 MG TABLET PO SCH ×2 (05:44→16:55)
[2021-06-01 06:01] LABS: Hematocrit 28.7 % (35.3-44.9); Hemoglobin 8.4 g/dL (11.5-15.4); Mean Corpuscular HGB Conc 29.3 g/dL (31.6-35.5); Mean Corpuscular Hemoglobin 22.1 pg (28.0-33.3); Mean Corpuscular Volume 75.5 fL (83.0-100.0); Mean Platelet Volume 10.5 fL (9.4-12.4); Platelet Count 480 K/mcL (140-400); Red Cell Distribution Width 26.8 % (11.5-14.5); White Blood Count 7.2 K/mcL (4.3-11.1)
[2021-06-01 06:18] LABS: BUN/Creatinine Ratio 20 (6-26); Blood Urea Nitrogen 9 mg/dL (8-23); Calcium 9.2 mg/dL (8.6-10.3); Carbon Dioxide 28 mEq/L (23-29); Chloride 101 mEq/L (98-107); Glucose 153 mg/dL (70-105); Magnesium 2.1 mg/dL (1.6-2.6); Osmolality,Calculated 284 (280-300); Potassium 4.4 mEq/L (3.5-5.1); Sodium 136 mEq/L (136-145); eGFR For African Americans > 60 (> 60); eGFR For Non-African Americans > 60 (> 60)
[2021-06-01] MEDS: Insulin LISPRO 300 UNITS/3 ML VIAL SUBQ SCH ×4 (07:48→21:33)
[2021-06-01] MEDS: Cholecalciferol (D-3) 1,000 UNIT (25MCG) TABLET PO SCH (07:58)
[2021-06-01] MEDS: Furosemide 20 MG TABLET PO SCH (07:58)
[2021-06-01] MEDS: Multivit/Ca/Min/Fe/FA 1 TAB TABLET PO SCH (07:58)
[2021-06-01] MEDS: Loratadine 10 MG TABLET PO SCH (07:58)
[2021-06-01] MEDS: Chlorhexidine Rinse 15 ML MOUTHWASH MM SCH ×2 (07:58→22:19)
[2021-06-01] MEDS: Artificial Tears SOLN 15 ML BOTTLE BOTH EYES SCH ×2 (07:59→22:19)
[2021-06-01] MEDS: polyethylene glycoL 3350 17 GM POWD.PACK PO SCH (08:00)
[2021-06-01] MEDS: Insulin DETEMIR 100 UNIT/ML X5UNITS SUBQ SCH ×2 (12:06→22:18)
[2021-06-02] MEDS: Ipratropium 1 PUFF INHALER IH SCH ×4 (04:13→20:35)
[2021-06-02] MEDS: Apixaban 5 MG TABLET PO SCH ×2 (05:47→17:40)
[2021-06-02] MEDS: Loratadine 10 MG TABLET PO SCH (08:13)
[2021-06-02] MEDS: Multivit/Ca/Min/Fe/FA 1 TAB TABLET PO SCH (08:13)
[2021-06-02] MEDS: Chlorhexidine Rinse 15 ML MOUTHWASH MM SCH (08:14)
[2021-06-02] MEDS: Artificial Tears SOLN 15 ML BOTTLE BOTH EYES SCH (08:14)
[2021-06-02] MEDS: Cholecalciferol (D-3) 1,000 UNIT (25MCG) TABLET PO SCH (08:14)
[2021-06-02] MEDS: Insulin DETEMIR 100 UNIT/ML X5UNITS SUBQ SCH ×2 (08:14→20:13)
[2021-06-02] MEDS: Furosemide 20 MG TABLET PO SCH (08:14)
[2021-06-02] MEDS: polyethylene glycoL 3350 17 GM POWD.PACK PO SCH (08:14)
[2021-06-02] MEDS: Insulin LISPRO 300 UNITS/3 ML VIAL SUBQ SCH ×4 (08:15→20:13)
[2021-06-02] MEDS ORDERED: Benzonatate 100 MG CAPSULE PO PRN (10:45)
[2021-06-03] MEDS: Ipratropium 1 PUFF INHALER IH SCH ×4 (04:28→22:55)
[2021-06-03] MEDS: Apixaban 5 MG TABLET PO SCH ×2 (06:03→17:00)
[2021-06-03] MEDS: Loratadine 10 MG TABLET PO SCH (09:07)
[2021-06-03] MEDS: Multivit/Ca/Min/Fe/FA 1 TAB TABLET PO SCH (09:07)
[2021-06-03] MEDS: Cholecalciferol (D-3) 1,000 UNIT (25MCG) TABLET PO SCH (09:07)
[2021-06-03] MEDS: Furosemide 20 MG TABLET PO SCH (09:07)
[2021-06-03] MEDS: polyethylene glycoL 3350 17 GM POWD.PACK PO SCH (09:18)
[2021-06-03] MEDS: Insulin DETEMIR 100 UNIT/ML X5UNITS SUBQ SCH ×2 (09:18→22:32)
[2021-06-03] MEDS: Insulin LISPRO 300 UNITS/3 ML VIAL SUBQ SCH ×4 (09:19→22:32)
[2021-06-04] MEDS: Ipratropium 1 PUFF INHALER IH SCH ×4 (04:24→20:54)
[2021-06-04] MEDS: Apixaban 5 MG TABLET PO SCH ×2 (05:55→17:46)
[2021-06-04] MEDS: polyethylene glycoL 3350 17 GM POWD.PACK PO SCH (09:03)
[2021-06-04] MEDS: Cholecalciferol (D-3) 1,000 UNIT (25MCG) TABLET PO SCH (09:03)
[2021-06-04] MEDS: Insulin LISPRO 300 UNITS/3 ML VIAL SUBQ SCH ×4 (09:04→22:32)
[2021-06-04] MEDS: Multivit/Ca/Min/Fe/FA 1 TAB TABLET PO SCH (09:04)
[2021-06-04] MEDS: Loratadine 10 MG TABLET PO SCH (09:04)
[2021-06-04] MEDS: Furosemide 20 MG TABLET PO SCH (09:04)
[2021-06-04] MEDS: Insulin DETEMIR 100 UNIT/ML X5UNITS SUBQ SCH ×2 (09:09→22:34)
[2021-06-05] MEDS: Ipratropium 1 PUFF INHALER IH SCH ×4 (04:12→21:32)
[2021-06-05] MEDS: Apixaban 5 MG TABLET PO SCH ×2 (05:31→17:41)
[2021-06-05] MEDS: Cholecalciferol (D-3) 1,000 UNIT (25MCG) TABLET PO SCH (09:50)
[2021-06-05] MEDS: Furosemide 20 MG TABLET PO SCH (09:50)
[2021-06-05] MEDS: Multivit/Ca/Min/Fe/FA 1 TAB TABLET PO SCH (09:50)
[2021-06-05] MEDS: Loratadine 10 MG TABLET PO SCH (09:50)
[2021-06-05] MEDS: polyethylene glycoL 3350 17 GM POWD.PACK PO SCH (09:51)
[2021-06-05] MEDS: Insulin LISPRO 300 UNITS/3 ML VIAL SUBQ SCH ×4 (09:54→21:45)
[2021-06-05] MEDS: Insulin DETEMIR 100 UNIT/ML X5UNITS SUBQ SCH ×2 (10:23→21:44)
[2021-06-05 14:24] LABS: Hemoglobin 8.7 g/dL (11.5-15.4)
[2021-06-06] MEDS: Ipratropium 1 PUFF INHALER IH SCH ×4 (04:42→20:31)
[2021-06-06] MEDS: Apixaban 5 MG TABLET PO SCH ×2 (06:21→17:17)
[2021-06-06] MEDS: Insulin LISPRO 300 UNITS/3 ML VIAL SUBQ SCH ×4 (07:28→21:52)
[2021-06-06] MEDS: polyethylene glycoL 3350 17 GM POWD.PACK PO SCH (08:41)
[2021-06-06] MEDS: Cholecalciferol (D-3) 1,000 UNIT (25MCG) TABLET PO SCH (08:41)
[2021-06-06] MEDS: Multivit/Ca/Min/Fe/FA 1 TAB TABLET PO SCH (08:41)
[2021-06-06] MEDS: Furosemide 20 MG TABLET PO SCH (08:41)
[2021-06-06] MEDS: Loratadine 10 MG TABLET PO SCH (08:41)
[2021-06-06] MEDS: Insulin DETEMIR 100 UNIT/ML X5UNITS SUBQ SCH ×2 (08:42→21:46)
[2021-06-07] MEDS: Ipratropium 1 PUFF INHALER IH SCH ×3 (03:22→16:09)
[2021-06-07] MEDS: Apixaban 5 MG TABLET PO SCH (06:47)
[2021-06-07] MEDS: Insulin LISPRO 300 UNITS/3 ML VIAL SUBQ SCH ×3 (08:00→16:57)
[2021-06-07 10:56] VITALS: BP 138/67; PULSE 91; TEMP 98.2
[2021-06-07] MEDS: polyethylene glycoL 3350 17 GM POWD.PACK PO SCH (11:35)
[2021-06-07] MEDS: Cholecalciferol (D-3) 1,000 UNIT (25MCG) TABLET PO SCH (11:35)
[2021-06-07] MEDS: Loratadine 10 MG TABLET PO SCH (11:35)
[2021-06-07] MEDS: Multivit/Ca/Min/Fe/FA 1 TAB TABLET PO SCH (11:35)
[2021-06-07] MEDS: Furosemide 20 MG TABLET PO SCH (11:36)
[2021-06-07] MEDS: Insulin DETEMIR 100 UNIT/ML X5UNITS SUBQ SCH (11:40)
[2021-06-07 19:01] VITALS: O2SAT 92
== END 2021-06-07 17:35 | disposition other institution (70) | DRG 177 ==
LOC: 2ANU → SUATTDRO 04-27 01:39 → 2NNU 04-27 17:29 → 2NENU 05-03 04:02
PROVIDERS: ADMIT Internal Medicine; ATTEND Internal Medicine